=== PATIENT | male | born 1965 | race Caucasian/White ===

== ENCOUNTER 2023-09-06 07:47 | Outpatient (AMB) | payer OTHER, SELFPAY ==
--- NOTE | 2023-09-06 08:03 | A.OFFPC_ITS ---
Vital Signs 09/06/23 08:17 Height 5 ft 10 in Weight 251 lb 8 oz BMI 36.1 BP 120/70 Blood Pressure Location Lt brachial Position Sitting Respiration 16 Pulse 76 Pulse Source Pulse Oximeter Temp 98.3 F Temp Source Oral Pulse Oximetry (%) 95 Oxygen Delivery Method Room Air Intake Visit Reasons: ELLA from [facility] Intake Note: New patient visit [facility] For [employer] Required: No Allergies No Known Allergies Allergy (Verified 09/06/23 08:08) Medication List - Last Reconciled 09/06/23 by Malissa Lugo PA-C apixaban (Eliquis) 5 mg PO BID atorvastatin 80 mg PO DAILY carbidopa-levodopa 25-100 mg ER tabs PO cholecalciferol (vitamin D3) 50 mcg PO DAILY diltiazem HCl ER (DILT-XR) 180 mg PO DAILY diltiazem HCl ER 180 mg PO DAILY ferrous sulfate 325 mg PO DAILY flecainide 100 mg PO Q12H folic acid 1 mg PO DAILY gabapentin mg PO TID lisinopril 20 mg PO DAILY metformin ER 500 mg PO BID methocarbamol 500 mg PO TID thiamine mononitrate (vit B1) 100 mg PO DAILY Tobacco use date assessed: 09/06/23 Dental Screening Dental Screen Date: 09/06/23 Did you have a dental visit in the last 12 months?: Yes Did you have a dental problem in the last 6 months where you did not have access to dental care?: No Was dental information given to patient?: Patient has dentist HPI ELLA from [facility] HPI Details Pt is a 58 y/o male who presents today to reestablish care. He is gordon sferring from [facility]. He has a history of hypertension, hyperlipidemia, AFib, chronic anticoagulation, controlled type 2 diabetes, prior CVA with residual right-sided weakness , recent diagnosis of parkinsonism and gout. He was last seen by myself in April. -reports today that his right ear canal is painful. A few weeks ago he went to an urgent care do have it irrigated because he had a cerumen impaction but he they were unable to do this. He states that they did scrape the ear canal and cause some minimal bleeding. He then had his daughter irrigate the ear. He states over last week or so it has been painful. It feels somewhat blocked. No fevers or chills. No drainage from the ear. He does swim regularly. Endo: His last A1c was 5.5. He is on metformin. No diarrhea. Last LDL was 46. He is on atorvastatin 80 mg. He is on an NICK inhibitor. He does not follow with Ophthalmology as much as he should. CV: Blood pressure today in the office is 120/70. He is currently on diltiazem, flecainide, lisinopril and Eliquis. Follows with cardiology. Last saw Dr. Mancera in March. Musculoskeletal: He is on gabapentin 600 mg 3 times a day and methocarbamol 3 times a day. He has been on this regimen since his stroke in feels well with this. He is on allopurinol for gout prevention. Neuro: He has a right arm, hand and right leg and vocal tremor. He followed katelyn marcial with Dr. Alicia but then he abruptly left the practice and patient was then lost to follow up. At our last visit I have referred him to [facility] as his daughter works there and he was able to get into the [facility]. I did also order an MRI. Which was completed on 05/02/2023. The MRI showed: 1. No acute/subacute infarct, mass, hem atoma or other acute intracranial abnormality. 2. Chronic infarcts in the left thalamu s, left medial temporal occipital junction, and left cerebellum with mild associated hemosiderin staining. 3. Loss of left vertebral artery flow vo id consistent with slow flow in the setting of known proximal occlusion (as seen on CTA head/neck of 09/08/2022). 4. Mild T2/FLAIR hyperintense foci in t he white matter, nonspecific but most likely reflecting chronic small vessel disease -He states he saw them 2 weeks ago in [facility] and he ended up meeting with a board of neurologists. He states that they believe the parkinsonism is related to his stroke. He is starting a new med next week. He does not know the name but will get me the med list. Colonoscopy: He believes up to date Psa:Overdue [facility] Medical History (Updated 09/06/23 @ 08:44 by Malissa Lugo PA-C) CVA (cerebral vascular accident) Right sided weakness Paroxysmal A-fib Hypertension Hyperlipidemia Surgical History (Updated 09/06/23 @ 09:05 by Theresa Alonzo CMA) Hx of appendectomy H/O: vasectomy Family History (Updated 09/06/23 @ 09:08 by Theresa Alonzo CMA) Mother Valvular heart disease Father Congestive heart failure Heart failure Gout Brother Alcoholic Aspergers' syndrome Lung cancer Histiocytosis Wilsons disease Other Substance use Social History Housing: House Tobacco use type: Cigar Years Smoked: Once a week if that e-Cigarette/Vaping Use: Never Used Second Hand Smoke Exposure: No service: No Current occupational status: employed 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 1. Little interest or pleasure in doing things: not at all 2. Feeling down, depressed, or hopeless: not at all 3. Trouble falling or staying asleep, or sleeping too much: not at all 4. Feeling tired or having little energy: not at all 5. Poor appetite or overeating: not at all 6. Feeling bad about yourself - or that you are a failure or have let yourself or your family down: not at all 7. Trouble concentrating on things, such as reading the newspaper or watching television: not at all 8. Moving or speaking so slowly that other people could have noticed. Or the opposite - being so fidgety or restless that you have been moving around a lot more than usual: not at all 9. Thoughts that you would be better off or of hurting yourself in some way: not at all Total score: 0 Depression Screening Interpretation: Negative Depression Screening Done: Yes 48426 - PHQ-9 Billing: Yes Source: Developed by Drs. Jaswinder Daigle, Juana Hood, Calvin Guevara and colleagues, with an educational adriana from [employer]. Thrive Questionnaire I am a: Patient Within the past 12 months, did the food you bought not last and you didn't have the money to get more?: Never true Within the past 12 months, did you worry whether your food would run out before you got money to buy more?: Never true Do you have trouble paying for medicines?: No Do you have trouble getting transportation to medical appointments?: No Do you have trouble paying your heating and electricity bill?: No Do you have trouble taking care of your child, family member or friend?: No Do you have trouble with day-to-day activities such as bathing, preparing meals, shopping, managing finances, etc.?: No Are you currently unemployed and looking for a job?: No Are you interested in more education?: No Please select the resources that you would like help with: None Currently or been in a relationship where the following occur: No concerns reported THRIVE Score: 0 AUDIT C Alcohol Use Questionnaire (AUDIT-C) 1. How often do you have a drink containing alcohol?: 2-4 times a month 2. How many drinks containing alcohol do you have on a typical day when you are drinking?: 3 or 4 3. How often do you have six or more drinks on one occasion?: Less than monthly Total Score: 4 Score Reviewed/Action Taken: Yes ROSE MARIE-7 AMB Questionnaire ROSE MARIE-7 Feeling nervous, anxious, or on edge: 0 = Not at all Not being able to stop or control worryin = Not at all Worrying too much about different things: 0 = Not at all Trouble relaxin = Not at all Being so restless that it is hard to sit still: 0 = Not at all Becoming easily annoyed or irritable: 0 = Not at all Feeling afraid as if something awful might happen: 0 = Not at all Total ROSE MARIE-7 score (0-4 normal; 5-9 mild; 10-14 moderate; 15-21 severe): 0 Source: Developed by Drs. Jaswinder Daigle, Juana Hood, Calvin Guevara and colleagues, with an educational adriana from [employer]. ROSE MARIE-7 Assessment Billing ROSE MARIE-7 Assessment Tool: ROSE MARIE-7 Assessment [id number] Physical exam (Primary Care) Vital Signs: Last Vital Signs Temp 98.3 F 09/06/23 08:17 Pulse 76 09/06/23 08:17 Resp 16 09/06/23 08:17 BP 120/70 09/06/23 08:17 Pulse Ox 95 09/06/23 08:17 Oxygen Delivery Method Room Air 09/06/23 08:17 BMI result Body Mass Index 36.1 Tobacco/Smoking Status: Tobacco use Status Tobacco use date assessed 09/06/23 09/06/23 08:22 Tobacco use type Cigar 09/06/23 08:22 e-Cigarette/Vaping Use Never Used 09/06/23 08:22 Depression Screening Interpretation: Negative Currently or been in a relationship where the following occur: No concerns reported Const Orientation/consciousness: patient oriented x3 HENMT Ears: hearing grossly normal bilaterally, TM's normal bilaterally and other (Canal on right erythematous and swollen. tug test positive) General nose exam: Normal nasal mucous membranes and turbinates present Face and sinus: Yes sinuses nontender Neck Thyroid: Thyroid normal Lymphatic: no lymphadenopathy noted Resp Auscultation: clear to auscultation bilaterally Cardio Rate: regular rate Rhythm: regular rhythm Heart sounds: S1 normal heart sound present and S2 normal heart sound present GI Inspection: Yes normal to inspection Palpation (GI): Soft to palpation and Other GI palpation findings present (nontender, no cva tenderness) Auscultation: normoactive bowel sounds Rectal Exam - Male: Yes deferred Skin General skin exam: no rashes or lesions noted Neuro General: patient oriented x3, gait normal and moves all extremities Motor exam (neuro): Tremors during motor activity present Assessment and Plan Assessment & Plan (1) Hyperlipidemia: Code(s): E78.5 - Hyperlipidemia, unspecified Qualifiers: Hyperlipidemia type: mixed hyperlipidemia Qualified Code(s): E78.2 - Mixed hyperlipidemia Plan: continue atorvastatin. lipids and lfts ordered (2) Hypertension: Code(s): I10 - Essential (primary) hypertension Qualifiers: Hypertension type: primary hypertension Qualified Code(s): I10 - Essential (primary) hypertension Plan: wnl, continue current plan (3) Paroxysmal A-fib: Code(s): I48.0 - Paroxysmal atrial fibrillation Plan: follows with Dr. 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 Plan: continue following with [facility] (5) Controlled type 2 diabetes mellitus: Code(s): E11.9 - Type 2 diabetes mellitus without complications Qualifiers: Diabetes mellitus halfway insulin use: without vermin exterminator use Diabetes mellitus complication status: without complication Qualified Code(s): E11.9 - Type 2 diabetes mellitus without complications Plan: dm labs ordered continue current treatment (6) Right sided weakness: Code(s): R53.1 - Weakness Plan: unchanged (7) Sleep apnea: Code(s): G47.30 - Sleep apnea, unspecified Orders: Orders Lipid Panel Today E11.9 - Type 2 diabetes mellitus without complications, E78.5 - Hyperlipidemia, unspecified, G20.C - Parkinsonism, unspecified, I10 - Essential (primary) hypertension, I48.0 - Paroxysmal atrial fibrillation, I63.9 - Cerebral infarction, unspecified, R53.1 - Weakness Comprehensive Baldwin. Panel Fast Today E11.9 - Type 2 diabetes mellitus without complications, E78.5 - Hyperlipidemia, unspecified, G20.C - Parkinsonism, unspecified, I10 - Essential (primary) hypertension, I48.0 - Paroxysmal atrial fibrillation, I63.9 - Cerebral infarction, unspecified, R53.1 - Weakness Complete Blood Count Auto Diff Today E11.9 - Type 2 diabetes mellitus without complications, E78.5 - Hyperlipidemia, unspecified, G20.C - Parkinsonism, unspecified, I10 - Essential (primary) hypertension, I48.0 - Paroxysmal atrial fibrillation, I63.9 - Cerebral infarction, unspecified, R53.1 - Weakness TSH reflex Free T4 Today E11.9 - Type 2 diabetes mellitus without complications, E78.5 - Hyperlipidemia, unspecified, G20.C - Parkinsonism, unspecified, I10 - Essential (primary) hypertension, I48.0 - Paroxysmal atrial fibrillation, I63.9 - Cerebral infarction, unspecified, R53.1 - Weakness Hemoglobin A1c Today E11.9 - Type 2 diabetes mellitus without complications, E78.5 - Hyperlipidemia, unspecified, G20.C - Parkinsonism, unspecified, I10 - Essential (primary) hypertension, I48.0 - Paroxysmal atrial fibrillation, I63.9 - Cerebral infarction, unspecified, R53.1 - Weakness Lyme IgG/IgM w/reflex to WB Today E11.9 - Type 2 diabetes mellitus without complications, E78.5 - Hyperlipidemia, unspecified, G20.C - Parkinsonism, unsp ecified, I10 - Essential (primary) hypertension, I48.0 - Paroxysmal atrial fibrillation, I63.9 - Cerebral infarction, unspecified, R53.1 - Weakness Vitamin B12 and Folate Today E11.9 - Type 2 diabetes mellitus without complications, G21.4 - Vascular parkinsonism, G47.30 - Sleep apnea, unspecified Microalbumin, Random (w Creat) Today E11.9 - Type 2 diabetes mellitus without complications, E78.5 - Hyperlipidemia, unspecified, G20.C - Parkinsonism, unspecified, I10 - Essential (primary) hypertension, I48.0 - Paroxysmal atrial fibrillation, I63.9 - Cerebral infarction, unspecified, R53.1 - Weakness Prostate Specific Antigen Today E11.9 - Type 2 diabetes mellitus without complications, E78.5 - Hyperlipidemia, unspecified, G20.C - Parkinsonism, unspecified, I10 - Essential (primary) hypertension, I48.0 - Paroxysmal atrial fibrillation, I63.9 - Cerebral infarction, unspecified, R53.1 - Weakness Referrals Sleep Medicine Referral G47.33 - Obstructive sleep apnea (adult) (pediatric) Medications: New [id number] 3.5-10,000-1 mg/mL-unit/mL-% 4 drps otic (ear) right TID 10 days 10 mL 0RF Coding Level of Care Code Est Pt Level 4 (85363) Complex EM visit Add On G2211 Diagnoses Mixed hyperlipidemia E78.2 Hyperlipidemia type: mixed hyperlipidemia Primary hypertension I10 Hypertension type: primary hypertension Paroxysmal A-fib I48.0 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 Secondary Parkinsonism type: vascular Controlled type 2 diabetes mellitus without complication, without long-term current use of insulin E11.9 Diabetes mellitus vermin exterminator insulin use: without vermin exterminator use Diabetes mellitus complication status: without complication Right sided weakness R53.1 Sleep apnea G47.30 Additional Codes ROSE MARIE-7 Assessment Billing - ROSE MARIE-7 Assessment Tool: ROSE MARIE-7 Assessment [id number] ([id number])
[2023-09-06 08:17] VITALS: BP 120/70; PULSE 76; RESP 16; TEMP 36.8; O2SAT 95; BMI 36.1
== END 2023-09-06 08:58 | disposition home or self-care (01) ==
PROVIDERS: PCP Physician Assistant; Visit Provider Physician Assistant
DX: E78.2 Mixed hyperlipidemia (principal); I10 Essential (primary) hypertension; I48.0 Paroxysmal atrial fibrillation; G21.4 Vascular parkinsonism; E11.9 Type 2 diabetes mellitus without complications; R53.1 Weakness; G47.30 Sleep apnea, unspecified
CPT/HCPCS: 99214

== ENCOUNTER 2023-12-12 06:18 | Outpatient (REF) | payer OTHER, SELFPAY ==
[2023-12-12 06:43] LABS: MANUAL DIFF FLAG NO
[2023-12-12 07:44] LABS: Basophils Absolute Auto 0.1 X10*3/uL (0.0-0.2); Basophils Percent Auto 1.4 % (0-2); Eosinophils Absolute Auto 0.2 X10*3/uL (0.0-0.4); Eosinophils Percent Auto 4.3 % (0-4); Hematocrit 43.1 % (42.0-52.0); Hemoglobin 15.2 g/dl (14.0-18.0); Imm Gran Abs Auto 0.01 X10*3/uL (0.00-0.03); Imm Gran Pct Auto 0.2 % (0.0-0.4); Lymphocytes Absolute Auto 1.9 X10*3/uL (1.2-4.9); Lymphocytes Percent Auto 36.2 % (20-40); Mean Corpuscular HGB Conc 35.3 g/dl (31.0-36.0); Mean Corpuscular Hemoglobin 30.8 pg (27.0-33.0); Mean Corpuscular Volume 87.4 fL (80.0-98.0); Mean Platelet Volume 9.5 fL (9.4-12.4); Monocytes Absolute Auto 0.4 X10*3/uL (0.1-1.2); Monocytes Percent Auto 8.3 % (2-11); Neutrophils Absolute Auto 2.6 x10*3/uL (2.0-8.3); Neutrophils Percent Auto 49.6 % (45-73); Platelet Count 220 X10*3/uL (160-400); Red Blood Count 4.93 X10*6/uL (4.60-5.80); Red Cell Distribution Width 12.1 % (11.0-16.0); White Blood Count 5.2 X10*3/uL (4.8-10.8)
[2023-12-12 07:56] LABS: Estimated Average Glucose 123 mg/dL; Hemoglobin A1C 162.7329 umol/L; Hemoglobin A1c % 5.9 % (<6.0); Total Hemoglobin (HGBA1C) 3920.1954 umol/L
[2023-12-12 08:20] LABS: Alanine Aminotransferase 24 U/L (0-40); Albumin Level 4.4 g/dL (3.5-5.0); Alkaline Phosphatase 96 U/L (39-117); Anion Gap 13 (12-20); Aspartate Amino Transferase 30 U/L (5-37); Bilirubin Total 0.7 mg/dL (0.0-1.0); Blood Urea Nitrogen 12 mg/dL (9-16); Calcium 9.5 mg/dL (8.4-10.2); Carbon Dioxide 27 mmol/L (22-29); Chloride 103 mmol/L (96-108); Cholesterol 119 mg/dL (<200); Estimated Glomerular Filt Rate > 60; Glucose Fasting 137 mg/dL (60-99); HDL Cholesterol 49 mg/dL (>40); LDL Cholesterol Calculated 45 mg/dL (<100); Potassium 4.1 mmol/L (3.3-5.1); Sodium 139 mmol/L (135-145); Total Protein 7.1 g/dL (6.5-8.0); Triglycerides 126 mg/dL (<150)
[2023-12-12 08:25] LABS: Creatinine Urine 288.83 mg/dL; Microalbum/Creatinine Ratio Ur 121.1 ug/mg cr (<30)
[2023-12-12 08:38] LABS: TSH reflex Free T4 1.04 uIU/mL (0.32-4.0)
[2023-12-12 08:49] LABS: Folate 15.5 ng/mL (> or = 4.0); Prostate Specific Antigen 0.96 ng/mL (<0.05-4.0); Vitamin B12 374 pg/mL (200-900)
[2023-12-14 06:48] LABS: Lyme Abs Screen <0.90 index
== END 2023-12-12 06:19 | disposition home or self-care (01) ==
LOC: HO.LAB 06:18
PROVIDERS: PCP Physician Assistant; Visit Provider Physician Assistant
DX: E78.5 Hyperlipidemia, unspecified (principal); I10 Essential (primary) hypertension; I48.0 Paroxysmal atrial fibrillation; G20.C Parkinsonism, unspecified; E11.9 Type 2 diabetes mellitus without complications; R53.1 Weakness; I63.9 Cerebral infarction, unspecified; G47.30 Sleep apnea, unspecified; G21.4 Vascular parkinsonism; Z12.5 Encounter for screening for malignant neoplasm of prostate
CPT/HCPCS: 36415; 80053; 80061; 82043; 82570; 82607; 82746; 83036; 84153; 84443; 85025; 86617; 86618

== ENCOUNTER 2023-12-13 08:27 | Outpatient (AMB) | payer OTHER, SELFPAY ==
--- NOTE | 2023-12-13 08:32 | A.OFFPC_ITS ---
Vital Signs 12/13/23 08:33 Height 5 ft 10 in Weight 253 lb BMI 36.3 BP 126/82 Blood Pressure Location Rt brachial Position Sitting Pulse 78 Pulse Source Pulse Oximeter Pulse Oximetry (%) 97 Oxygen Delivery Method Room Air Intake Visit Reasons: F/U Intake Note: Follow up Allergies No Known Allergies Allergy (Verified 12/13/23 08:32) Medication List - Last Reconciled 12/13/23 by Malissa Lugo PA-C apixaban (Eliquis) 5 mg PO BID atorvastatin 80 mg PO DAILY carbidopa-levodopa 25-100 mg ER tabs PO cholecalciferol (vitamin D3) 50 mcg PO DAILY diltiazem HCl ER (DILT-XR) 180 mg PO DAILY diltiazem HCl ER 180 mg PO DAILY ferrous sulfate 325 mg PO DAILY flecainide 100 mg PO Q12H folic acid 1 mg PO DAILY gabapentin 600 mg (2 x 300 mg) PO TID 30 days lisinopril 20 mg PO DAILY metformin ER 500 mg PO BID methocarbamol 500 mg PO TID 90 days thiamine mononitrate (vit B1) 100 mg PO DAILY Tobacco use date assessed: 09/06/23 Dental Screening Dental Screen Date: 09/06/23 HPI F/U HPI Details Pt is a 58 y/o male who presents today to reestablish care. He is transferring from [facility]. He has a history of hypertension, hyperlipidemia, AFib, chronic anticoagulation, controlled type 2 diabetes, prior CVA with residual right-sided weakness , recent diagnosis of parkinsonism and gout. He was last seen by myself in April. Endo: dx around 2013. He has been on metformin since that time. His last A1c was 5.9. He is on metformin BID. No diarrhea. Microalbuminuria noted. Last LDL was 46. He is on atorvastatin 80 mg. He is on an NICK inhibitor. CV: Blood pressure today in the office is 126/82. They are discussing the Watchman procedure. He is currently on diltiazem, flecainide, lisinopril and Eliquis. Follows with cardiology. Last saw Dr. Mancera in March. Musculoskeletal: He is on gabapentin 600 mg 3 times a day and methocarbamol 3 times a day. He has been on this regimen since his stroke in feels well with this. He is on allopurinol for gout prevention. Neuro: He has a right arm, hand and right leg and vocal tremor. He followed wants with Dr. Alicia but then he abruptly left the practice and patient was then lost to follow up. At our last visit I have referred him to [facility] as his daughter works there and [facility] was able to get [facility]. I did also order an MRI. Which was completed on 05/02/2023. The MRI showed: 1. No acute/subacute infarct, mass, hem atoma or other acute intracranial abnormality. 2. Chronic infarcts in the left thalamu s, left medial temporal occipital junction, and left cerebellum with mild associated hemosiderin staining. 3. Loss of left vertebral artery flow vo id consistent with slow flow in the setting of known proximal occlusion (as seen on CTA head/neck of 09/08/2022). 4. Mild T2/FLAIR hyperintense foci in t he white matter, nonspecific but most likely reflecting chronic small vessel disease -He states he saw them 2 weeks ago in [facility] and he ended up meeting with a board of neurologists. He states that they believe the parkinsonism is related to his stroke. Colonoscopy: He believes up to date Psa: WNL [facility] Medical History (Updated 12/13/23 @ 11:26 by Malissa Lugo PA-C) CVA (cerebral vascular accident) Right sided weakness Paroxysmal A-fib Hypertension Hyperlipidemia Surgical History (Updated 09/06/23 @ 09:05 by Theresa Alonzo CMA) Hx of appendectomy H/O: vasectomy Family History (Updated 09/06/23 @ 09:08 by Theresa Alonzo CMA) Mother Valvular heart disease Father Congestive heart failure Heart failure Gout Brother Alcoholic Aspergers' syndrome Lung cancer Histiocytosis Wilsons disease Other Substance use Social History Housing: House Tobacco use type: Cigar Years Smoked: Once a week if that e-Cigarette/Vaping Use: Never Used Second Hand Smoke Exposure: No service: No Current occupational status: employed 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 1. Little interest or pleasure in doing things: not at all 2. Feeling down, depressed, or hopeless: not at all 3. Trouble falling or staying asleep, or sleeping too much: not at all 4. Feeling tired or having little energy: not at all 5. Poor appetite or overeating: not at all 6. Feeling bad about yourself - or that you are a failure or have let yourself or your family down: not at all 7. Trouble concentrating on things, such as reading the newspaper or watching television: not at all 8. Moving or speaking so slowly that other people could have noticed. Or the opposite - being so fidgety or restless that you have been moving around a lot more than usual: not at all 9. Thoughts that you would be better off or of hurting yourself in some way: not at all Total score: 0 Source: Developed by Drs. Jaswinder Daigle, Juana Hood, Calvin Guevara and colleagues, with an educational adriana from [employer]. Thrive Questionnaire I am a: Patient What is your living situation today?: I have a steady place to live Within the past 12 months, did the food you bought not last and you didn't have the money to get more?: Never true Within the past 12 months, did you worry whether your food would run out before you got money to buy more?: Never true Do you have trouble paying for medicines?: No Do you have trouble getting transportation to medical appointments?: No Do you have trouble paying your heating and electricity bill?: No Do you have trouble taking care of your child, family member or friend?: No Do you have trouble with day-to-day activities such as bathing, preparing meals, shopping, managing finances, etc.?: No Are you currently unemployed and looking for a job?: No Are you interested in more education?: No Please select the resources that you would like help with: None Currently or been in a relationship where the following occur: No concerns reported THRIVE Score: 0 AUDIT C Alcohol Use Questionnaire (AUDIT-C) 1. How often do you have a drink containing alcohol?: 2-4 times a month 2. How many drinks containing alcohol do you have on a typical day when you are drinking?: 1 or 2 3. How often do you have six or more drinks on one occasion?: Never Total Score: 2 ROSE MARIE-7 AMB Questionnaire ROSE MARIE-7 Feeling nervous, anxious, or on edge: 0 = Not at all Not being able to stop or control worryin = Not at all Worrying too much about different things: 0 = Not at all Trouble relaxin = Not at all Being so restless that it is hard to sit still: 0 = Not at all Becoming easily annoyed or irritable: 0 = Not at all Feeling afraid as if something awful might happen: 0 = Not at all Total ROSE MARIE-7 score (0-4 normal; 5-9 mild; 10-14 moderate; 15-21 severe): 0 Source: Developed by Drs. Jaswinder Daigle, Juana Hood, Calvin Guevara and colleagues, with an educational adriana from [employer]. Physical exam (Primary Care) Vital Signs: Last Vital Signs Pulse 78 12/13/23 08:33 BP 126/82 12/13/23 08:33 Pulse Ox 97 12/13/23 08:33 Oxygen Delivery Method Room Air 12/13/23 08:33 BMI result Body Mass Index 36.3 Tobacco/Smoking Status: Tobacco use Status Tobacco use date assessed 09/06/23 12/13/23 08:36 Tobacco use type Cigar 12/13/23 08:36 e-Cigarette/Vaping Use Never Used 12/13/23 08:36 PHQ-9: PHQ-9 Score PHQ-9: Total score 0 12/13/23 10:37 Currently or been in a relationship where the following occur: No concerns reported Const Orientation/consciousness: patient oriented x3 HENMT Ears: hearing grossly normal bilaterally Neck Thyroid: Thyroid normal Lymphatic: no lymphadenopathy noted Resp Auscultation: clear to auscultation bilaterally Cardio Rate: regular rate Rhythm: regular rhythm Heart sounds: S1 normal heart sound present and S2 normal heart sound present GI Inspection: Yes normal to inspection Palpation (GI): Soft to palpation and Other GI palpation findings present (nontender, no cva tenderness) Auscultation: normoactive bowel sounds Rectal Exam - Male: Yes deferred Skin General skin exam: no rashes or lesions noted Neuro General: patient oriented x3, gait normal and no focal motor deficits Results Reviewed Results Reviewed: Laboratory Tests 12/12/23 06:41 WBC 5.2 RBC 4.93 Hgb 15.2 Hct 43.1 Plt Count 220 Sodium 139 Potassium 4.1 Chloride 103 Carbon Dioxide 27 Anion Gap 13 BUN 12 Creatinine 0.97 Estimated GFR > 60 Fasting Glucose 137 H Estimat Average Glucose 123 Hemoglobin A1c % 5.9 Calcium 9.5 Total Bilirubin 0.7 AST 30 ALT 24 Alkaline Phosphatase 96 Total Protein 7.1 Albumin 4.4 Triglycerides 126 Cholesterol 119 LDL Cholesterol, Calc 45 HDL Cholesterol 49 Prostate Specific Ag 0.96 Vitamin B12 374 Folate 15.5 TSH 1.04 Urine Creatinine 288.83 Urine Microalbumin 350.0 Microalb/Creat Ratio 121.1 H Coding Level of Care Code Est Pt Level 4 (53860) Complex EM visit Add On G2211 Diagnoses Controlled type 2 diabetes mellitus with microalbuminuria, without long-term current use of insulin E11.29; R80.9 Diabetes mellitus complication detail: with diabetic microalbuminuria Microalbuminuria due to type 2 diabetes mellitus E11.29; R80.9 Primary hypertension I10 Hypertension type: primary hypertension Mixed hyperlipidemia E78.2 Hyperlipidemia type: mixed hyperlipidemia Assessment & Plan Assessment & Plan (1) Controlled type 2 diabetes mellitus with kidney complication, without long- term current use of insulin: Code(s): E11.29 - Type 2 diabetes mellitus with other diabetic kidney complication Category: Medical Qualifiers: Diabetes mellitus complication detail: with diabetic microalbuminuria Qualified Code(s): E11.29 - Type 2 diabetes mellitus with other diabetic kidney complication; R80.9 - Proteinuria, unspecified Plan: On an NICK inhibitor. Doing well with metformin but we will reduce the dose and start him on Jardiance. We discussed risks and benefits and adverse effects of this medication including frequent UTIs, yeast infections etc.. Recheck labs one-month (2) Microalbuminuria due to type 2 diabetes mellitus: Code(s): E11.29 - Type 2 diabetes mellitus with other diabetic kidney complication; R80.9 - Proteinuria, unspecified Category: Medical Plan: As above (3) Hypertension: Code(s): I10 - Essential (primary) hypertension Category: Medical Qualifiers: Hypertension type: primary hypertension Qualified Code(s): I10 - Essential (primary) hypertension Plan: Continue current regimen (4) Hyperlipidemia: Code(s): E78.5 - Hyperlipidemia, unspecified Category: Medical Qualifiers: Hyperlipidemia type: mixed hyperlipidemia Qualified Code(s): E78.2 - Mixed hyperlipidemia Plan: Continue current regimen. Reviewed labs. Orders: Orders Comprehensive [place]. Panel Fast Today E11.29 - Type 2 diabetes mellitus with other diabetic kidney complication, E11.9 - Type 2 diabetes mellitus without complications, R80.9 - Proteinuria, unspecified Microalbumin, Random (w Creat) Today E11.29 - Type 2 diabetes mellitus with other diabetic kidney complication, E11.9 - Type 2 diabetes mellitus without complications, R80.9 - Proteinuria, unspecified Hemoglobin A1c Today E11.29 - Type 2 diabetes mellitus with other diabetic kidney complication, E11.9 - Type 2 diabetes mellitus without complications, R80.9 - Proteinuria, unspecified TSH reflex Free T4 3 Months E11.29 - Type 2 diabetes mellitus with other diabetic kidney complication, E11.9 - Type 2 diabetes mellitus without complications, R80.9 - Proteinuria, unspecified Referrals Dermatology Referral L98.9 - Disorder of the skin and subcutaneous tissue, unspecified Medications: New empagliflozin (Jardiance) 10 mg PO QAM 90 tabs 0RF Changed From metformin ER 500 mg PO BID 180 tabs 3RF To metformin ER 500 mg PO DAILY 90 days 90 tabs 3RF
[2023-12-13 08:33] VITALS: BP 126/82; PULSE 78; O2SAT 97; BMI 36.3
== END 2023-12-13 14:36 | disposition home or self-care (01) ==
LOC: HO.HMCFM 08:28
PROVIDERS: PCP Physician Assistant; Visit Provider Physician Assistant
DX: E11.29 Type 2 diabetes mellitus with other diabetic kidney complication (principal); R80.9 Proteinuria, unspecified; I10 Essential (primary) hypertension; E78.2 Mixed hyperlipidemia

== ENCOUNTER → 2023-12-13 08:27 | Outpatient (BNVA) | payer OTHER, SELFPAY | PROVIDERS: PCP Physician Assistant; Visit Provider Physician Assistant ==

== ENCOUNTER 2024-04-18 11:08 | Outpatient (AMB) | payer OTHER, SELFPAY ==
--- NOTE | 2024-04-18 11:33 | A.OFFPC_ITS ---
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 Allergies No Known Allergies Allergy (Verified 04/18/24 11:34) Medication List - Last Reconciled 04/18/24 by Malissa Lugo PA-C allopurinol 200 mg (2 x 100 mg) PO BEDTIME 90 days apixaban (Eliquis) 5 mg PO BID atorvastatin 80 mg PO DAILY carbidopa-levodopa 25-100 mg ER tabs PO cholecalciferol (vitamin D3) 50 mcg PO DAILY diltiazem HCl ER (DILT-XR) 180 mg PO DAILY empagliflozin (Jardiance) 10 mg PO QAM ferrous sulfate 325 mg PO DAILY flecainide 100 mg PO Q12H folic acid 1 mg PO DAILY gabapentin 600 mg (2 x 300 mg) PO TID 90 days lisinopril 20 mg PO DAILY metformin ER 500 mg PO DAILY 90 days methocarbamol 500 mg PO TID 90 days multivitamin 1 tab PO DAILY thiamine mononitrate (vit B1) 100 mg PO DAILY Tobacco use date assessed: 04/18/24 Dental Screening Dental Screen Date: 09/06/23 HPI dm bp HPI Details Pt is a 58 y/o male who [facility] is transferring from [facility]. He has a history of hypertension, hyperlipidemia, AFib, chronic anticoagulation, controlled type 2 diabetes, prior CVA with residual right-sided weakness , recent diagnosis of parkinsonism and gout. He was last seen by myself in April. Endo: dx around 2013. He has been on metformin since that time. His is A1c is 6.3. He is on metformin Once a day. Does sometimes get GI upset. He is doing well with the Jardiance but does urinate frequently. No UTIs or yeast infections. Microalbuminuria noted. Last LDL was 46. He is on atorvastatin 80 mg. He is on an NICK inhibitor. CV: Blood pressure today in the office is 98/68. They are discussing the Watchman procedure. He is currently on diltiazem, flecainide, lisinopril and Eliquis. Follows with cardiology. Last saw Dr. Mancera in March. Musculoskeletal: He is on gabapentin 600 mg 3 times a day and methocarbamol 3 times a day. He has been on this regimen since his stroke in feels well with this. He is on allopurinol for gout prevention. Neuro: He has a right arm, hand and right leg and vocal tremor. He followed by neurology in [place] and he ended up meeting with a board of neurologists. He states that they believe the parkinsonism is related to his stroke. Colonoscopy: He believes up to date Psa: WNL [facility] Medical History (Updated 12/13/23 @ 11:26 by Malissa Lugo PA-C) CVA (cerebral vascular accident) Right sided weakness Paroxysmal A-fib Hypertension Hyperlipidemia Surgical History (Updated 09/06/23 @ 09:05 by Theresa Alonzo CMA) Hx of appendectomy H/O: vasectomy Family History (Updated 09/06/23 @ 09:08 by Theresa Alonzo CMA) Mother Valvular heart disease Father Congestive heart failure Heart failure Gout Brother Alcoholic Aspergers' syndrome Lung cancer Histiocytosis Wilsons disease Other Substance use Social History Housing: House Alcohol intake: current Comment: sometimes Patient Tobacco Use Status: Current someday Tobacco user Tobacco use type: Cigar (2 a week at the most) Years Smoked: Once a week if that e-Cigarette/Vaping Use: Never Used Second Hand Smoke Exposure: No service: No Current occupational status: employed 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 1. Little interest or pleasure in doing things: not at all 2. Feeling down, depressed, or hopeless: not at all 3. Trouble falling or staying asleep, or sleeping too much: not at all 4. Feeling tired or having little energy: not at all 5. Poor appetite or overeating: not at all 6. Feeling bad about yourself - or that you are a failure or have let yourself or your family down: not at all 7. Trouble concentrating on things, such as reading the newspaper or watching television: not at all 8. Moving or speaking so slowly that other people could have noticed. Or the opposite - being so fidgety or restless that you have been moving around a lot more than usual: not at all 9. Thoughts that you would be better off or of hurting yourself in some way: not at all Total score: 0 Depression Screening Interpretation: Negative Depression Screening Done: Yes 11636 - PHQ-9 Billing: Yes Source: Developed by Drs. Jaswinder Daigle, Juana Hood, Calvin Guevara and colleagues, with an educational adriana from [employer]. Thrive Questionnaire Date Thrive assessed: 02/21/24 I am a: Patient What is your living situation today?: I have a steady place to live Within the past 12 months, did the food you bought not last and you didn't have the money to get more?: Never true Within the past 12 months, did you worry whether your food would run out before you got money to buy more?: Never true Do you have trouble paying for medicines?: No Do you have trouble getting transportation to medical appointments?: No Do you have trouble paying your heating and electricity bill?: No Do you have trouble taking care of your child, family member or friend?: No Do you have trouble with day-to-day activities such as bathing, preparing meals, shopping, managing finances, etc.?: No Are you currently unemployed and looking for a job?: No Are you interested in more education?: No Please select the resources that you would like help with: None Currently or been in a relationship where the following occur: No concerns reported THRIVE Score: 0 ROSE MARIE-7 AMB Questionnaire ROSE MARIE-7 Feeling nervous, anxious, or on edge: 0 = Not at all Not being able to stop or control worryin = Not at all Worrying too much about different things: 0 = Not at all Trouble relaxin = Not at all Being so restless that it is hard to sit still: 0 = Not at all Becoming easily annoyed or irritable: 0 = Not at all Feeling afraid as if something awful might happen: 0 = Not at all Total ROSE MARIE-7 score (0-4 normal; 5-9 mild; 10-14 moderate; 15-21 severe): 0 Source: Developed by Drs. Jaswinder Daigle, Juana Hood, Calvin Guevara and colleagues, with an educational adriana from [employer]. ROSE MARIE-7 Assessment Billing ROSE MARIE-7 Assessment Tool: ROSE MARIE-7 Assessment 32753 Physical exam (Primary Care) Tobacco/Smoking Status: Tobacco use Status Tobacco use date assessed 09/06/23 12/13/23 08:36 Tobacco use type Cigar 12/13/23 08:36 e-Cigarette/Vaping Use Never Used 12/13/23 08:36 Depression Screening Interpretation: Negative Thrive Assessment: Date of Thrive Assessment Date Thrive assessed 02/21/24 04/16/24 14:25 Currently or been in a relationship where the following occur: No concerns reported Const Orientation/consciousness: patient oriented x3 HENMT Ears: hearing grossly normal bilaterally Neck Thyroid: Thyroid normal Lymphatic: no lymphadenopathy noted Resp Auscultation: clear to auscultation bilaterally Cardio Rate: regular rate Rhythm: regular rhythm Heart sounds: S1 normal heart sound present and S2 normal heart sound present GI Inspection: Yes normal to inspection Palpation (GI): Soft to palpation and Other GI palpation findings present (nontender, no cva tenderness) Auscultation: normoactive bowel sounds Rectal Exam - Male: Yes deferred Skin General skin exam: no rashes or lesions noted Neuro General: patient oriented x3, gait normal and no focal motor deficits Results AMB Hemoglobin A1c AMB Hemoglobin A1c 6.3 % Last Edit by Theresa Alonzo CMA on 04/18/24 13:11 Results Reviewed Results Reviewed: Laboratory Tests 12/12/23 06:41 WBC 5.2 RBC 4.93 Hgb 15.2 Hct 43.1 Plt Count 220 Sodium 139 Potassium 4.1 Chloride 103 Carbon Dioxide 27 Anion Gap 13 BUN 12 Creatinine 0.97 Estimated GFR > 60 Fasting Glucose 137 H Hemoglobin A1c % 5.9 AST 30 ALT 24 Alkaline Phosphatase 96 Triglycerides 126 Cholesterol 119 LDL Cholesterol, Calc 45 HDL Cholesterol 49 Prostate Specific Ag 0.96 Vitamin B12 374 Folate 15.5 TSH 1.04 Urine Creatinine 288.83 Urine Microalbumin 350.0 Microalb/Creat Ratio 121.1 H Coding Level of Care Code Est Pt Level 4 (92067) Complex EM visit Add On G2211 Diagnoses Controlled type 2 diabetes mellitus with microalbuminuria, without long-term current use of insulin E11.29; R80.9 Diabetes mellitus complication detail: with diabetic microalbuminuria Microalbuminuria due to type 2 diabetes mellitus E11.29; R80.9 Sleep apnea G47.30 Paroxysmal A-fib I48.0 Primary hypertension I10 Hypertension type: primary hypertension Mixed hyperlipidemia E78.2 Hyperlipidemia type: mixed hyperlipidemia 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 Secondary Parkinsonism type: vascular Additional Codes PHQ-9 - 33091 - PHQ-9 Billing: Yes ([id number]) ROSE MARIE-7 Assessment Billing - ROSE MARIE-7 Assessment Tool: ROSE MARIE-7 Assessment [id number] ([id number]) Assessment & Plan Assessment & Plan (1) Controlled type 2 diabetes mellitus with kidney complication, without long- term current use of insulin: Code(s): E11.29 - Type 2 diabetes mellitus with other diabetic kidney complication Category: Medical Qualifiers: Diabetes mellitus complication detail: with diabetic microalbuminuria Qualified Code(s): E11.29 - Type 2 diabetes mellitus with other diabetic kidney complication; R80.9 - Proteinuria, unspecified Plan: I would like to discuss continue the metformin as he does sometimes get GI upset. I would like to start Mounjaro given the obstructive sleep apnea and diabetes. We did discuss risks and benefits and adverse effects of this medication. Continue Jardiance. (2) Microalbuminuria due to type 2 diabetes mellitus: Code(s): E11.29 - Type 2 diabetes mellitus with other diabetic kidney complication; R80.9 - Proteinuria, unspecified Category: Medical Plan: On Jardiance and an NICK inhibitor. UA ordered. (3) Sleep apnea: Code(s): G47.30 - Sleep apnea, unspecified Category: Medical Plan: Start Mounjaro (4) Paroxysmal A-fib: Code(s): I48.0 - Paroxysmal atrial fibrillation Category: Medical Plan: stable. Rate controlled and anticoagulated. (5) Hypertension: Code(s): I10 - Essential (primary) hypertension Category: Medical Qualifiers: Hypertension type: primary hypertension Qualified Code(s): I10 - Essential (primary) hypertension Plan: We will reduce lisinopril to 10 mg. Patient has lost weight with some dietary changes. Continue regimen otherwise (6) Hyperlipidemia: Code(s): E78.5 - Hyperlipidemia, unspecified Category: Medical Qualifiers: Hyperlipidemia type: mixed hyperlipidemia Qualified Code(s): E78.2 - Mixed hyperlipidemia Plan: continue atorvastatin (7) Parkinsonism: Code(s): G20.C - Parkinsonism, unspecified Category: Medical Qualifiers: Parkinsonism type: secondary Parkinsonism Secondary Parkinsonism type: vascular Qualified Code(s): G21.4 - Vascular parkinsonism Plan: stable. Orders: Orders AMB Hemoglobin A1c Today E11.29 - Type 2 diabetes mellitus with other diabetic kidney complication, R80.9 - Proteinuria, unspecified Medications: New tirzepatide (Mounjaro) for 4 weeks 2.5 mg (0.5 mL) subcut QWEEK 2 mL 1RF ofloxacin 0.3% 3 drps otic (ears) DAILY 7 days 5 mL 0RF lisinopril 10 mg PO DAILY 90 tabs 0RF Patient Instructions: decrease lisinopril to 10 mg start mounjaro (if covered or itll be trulicity) once approved/at pharmacy and then stop metformin. continue jardiance
[2024-04-18 11:35] VITALS: BP 98/68; PULSE 77; RESP 12; O2SAT 98; BMI 35.3
--- OUTSIDE RECORDS SUMMARY | 2024-04-18 14:19 | XMS_ITS | Clinical Summary ---
Author Organization [facility] Address [address] [place] [address] Care Team Providers Care Test Desk Supervisor Name Role Phone Pcp, No Primary Care Provider Unavailabl e Allergies No known active allergies Medications Medication Sig Dispensed Refills Start Date End Date Status metFORMIN (GLUCOPHAGE-XR) 500 MG 24 hr tabletIndications:Ac elem ischemic stroke (HCC) Take 1 tablet (500 mg total) by mouth 2 (two) times a day. 60 tablet 12/17/2020 Active aspirin 81 MG chewable tabletIndications:Ac elem ischemic stroke (HCC) Chew 1 tablet (81 mg total) daily. Do not start before December 18, 2020. 12/18/2020 Active atorvastatin (LIPITOR) 80 MG tabletIndications:Ac elem ischemic stroke (HCC) Take 1 tablet (80 mg total) by mouth daily. Do not start before December 18, 2020. 30 tablet 12/18/2020 Active Additional Information Patient taking differently:80 mg Oral Daily,AM, Reported on 04/26/2023 clopidogrel (PLAVIX) 75 MG tabletIndications:Ac elem ischemic stroke (HCC) Take 1 tablet (75 mg total) by mouth daily. Do not start before December 18, 2020. 12/18/2020 Active ferrous sulfate 325 (65 FE) MG EC tabletIndications:Ac elem ischemic stroke (HCC) Take 1 tablet (325 mg total) by mouth daily. Take 2 hours before or 4 hours after acid reducers. Do not start before December 18, 2020. 30 tablet 12/18/2020 Active cholecalciferol (CHOLECALCIFEROL) 25 MCG (1000 UT) tabletIndications:Ac elem ischemic stroke (HCC) Take 1 tablet (1,000 Units total) by mouth daily. Do not start before December 18, 2020. 30 tablet 12/18/2020 Active folic acid (FOLVITE) 1 MG tabletIndications:Ac elem ischemic stroke (HCC) Take 1 tablet (1 mg total) by mouth daily. Do not start before December 18, 2020. 30 tablet 12/18/2020 Active Heparin Sodium, Porcine, (heparin, porcine,) 5000 unit/mL injectionIndications :Acute ischemic stroke (HCC) Inject 1 mL (5,000 Units total) under the skin every 8 (eight) hours around the clock. 1 mL 12/17/2020 Active magnesium oxide 400 (241.3 Mg) MG Tab tabletIndications:Ac elem ischemic stroke (HCC) Take 1 tablet (400 mg total) by mouth daily. Do not start before December 18, 2020. 30 tablet 12/18/2020 Active methocarbamol (ROBAXIN) 500 MG tabletIndications:Ac elem ischemic stroke (HCC) Take 1 tablet (500 mg total) by mouth 3 (three) times a day as needed for muscle spasms. 12/17/2020 Active ondansetron (ZOFRAN-ODT) 4 MG disintegrating tabletIndications:Ac elem ischemic stroke (HCC) Take 1 tablet (4 mg total) by mouth 4 times daily (every 6 hours) as needed for nausea or vomiting. Place tablet on tongue to dissolve. 20 tablet 12/17/2020 Active thiamine mononitrate (VITAMIN B-1) 100 MG tabletIndications:Ac elem ischemic stroke (HCC) Take 1 tablet (100 mg total) by mouth daily. Do not start before December 18, 2020. 30 tablet 12/18/2020 Active traMADol (ULTRAM) 50 MG tablet Take 1 tablet (50 mg total) by mouth 4 times daily (every 6 hours) as needed. Active diltiazem (CARDIZEM CD) 180 MG 24 hr capsule Take 1 capsule (180 mg total) by mouth daily. Active allopurinol (ZYLOPRIM) 100 mg tablet Take 2 tablets (200 mg total) by mouth daily. PM Active colchicine (COLCRYS) 0.6 mg tablet Take 1 tablet (0.6 mg total) by mouth 2 (two) times a day as needed. Active diclofenac (VOLTAREN) 1 % gel Apply 2 g topically 4 (four) times a day. Active gabapentin (NEURONTIN) 300 MG capsule Take 2 capsules (600 mg total) by mouth 3 (three) times a day. Active lisinopril (PRINIVIL,ZeSTRIL) 10 MG tablet Take 1 tablet (10 mg total) by mouth daily. Active multivitamin Tab tablet Take 1 tablet by mouth daily. Active doxylamine-pyridoxin e 10-10 MG Tablet Delayed Response Take 50 mg by mouth daily. Active flecainide (TAMBOCOR) 50 MG tablet Take 1 tablet (50 mg total) by mouth 2 (two) times a day. Active magnesium hydroxide (MILK OF MAGNESIA) 400 mg/5 mL suspension Take 30 mL by mouth daily as needed for constipation. Active apixaban (ELIQUIS) 5 MG tablet Take 1 tablet (5 mg total) by mouth 2 (two) times a day. Active Jardiance 10 MG tablet Take 1 tablet (10 mg total) by mouth every morning. 12/15/2023 Active carbidopa-levodopa ER (SINEMET CR) 25-100 MG per tabletIndications:Ru bral tremor Take 2 tablets by mouth 3 times a day. 540 tablet 3 01/24/2024 Active Active Problems Problem Noted Date Diagnosed Date Atrial fibrillation 04/26/2023 04/26/2023 Acute ischemic stroke 12/11/2020 Overview (12/11/2020): Added automatically from request for surgery [id number] Encounters Date Type Department Care Team Description 01/24/2024 2:00 PM EST Office Visit [facility] [id number] [place] [address] Rah Dawson MD Rubral tremor (Primary Dx) 01/24/2024 Travel from Last 3 Months Family History Medical History Relation Name Comments Cancer Brother Diabetes Father Diabetes Mother Relation Name Status Comments Brother Father Mother Social History Tobacco Use Types Packs/Day Years Used Date Smoking Tobacco: Some Days Cigars Smokeless Tobacco: Never Tobacco Cessation:Counseling Given: Not Answered Alcohol Use Standard Drinks/Week Comments Yes 0 (1 standard drink = 0.6 oz pur e alcohol) occasionally OASIS D0700: Social Isolation Answer Da te Recorded Frequency of experiencing loneliness or isolatio n Never 06/01/2022 OASIS A1250: Transportation Answer Date Recorded Lack of Transportation (Medical) No 06/01/2022 Lack of Transportation (Non-Medical) No 06/01/2022 Patient Unable or Declines to Respond No 06/01/2022 Sex and Gender Information Value Date Recorded Sex Assigned at Not on file Gender Identity Not on file Sexual Orientation Not on file Last Filed Vital Signs Vital Sign Reading Time Taken Comments Blood Pressure 126/74 01/24/2024 1:43 PM EST Pulse 83 01/24/2024 1:43 PM EST Temperature 36.6 ??C (97.9 ??F) 06/01/2022 9:52 AM ED T Respiratory Rate 16 05/25/2022 1:53 PM EDT Oxygen Saturation 95% 01/24/2024 1:43 PM EST Inhaled Oxygen Concentration - - Weight 114 kg (251 lb) 01/24/2024 1:43 PM EST Height 177.8 cm (5' 10 ) 01/24/2024 1:43 PM EST Body Mass Index 36.01 01/24/2024 1:43 PM EST Plan of Treatment Upcoming Encounters Date Type Department Care Team (Late st Contact Info) Description 07/24/2024 1:30 PM EDT Office Visit [facility] [address] [place] [phone] Rah Dawson MD [address] [address] Health Maintenance Due Date Last Done Comments Hepatitis C Virus Screening 1965 Pneumococcal Vaccine: Pediatric (0-5 Years) and At-Risk Patients (6 to 49 Years) (1 of 2 - PCV) 04/21/1969 HIV Screening 04/21/1976 DTaP/Tdap/Td Vaccines (1 - Tdap) 04/21/1982 Pneumococcal Vaccines 50+ (1 of 2 - PCV) 04/21/1982 Colonoscopy 04/21/2008 Zoster (Shingles) Vaccine (1 of 2) 04/21/2013 RSV Vaccine 60 years and older and Patients (1 - Risk 60-74 years 1-dose series) 2023 Influenza Vaccine 09/07/2023 11/28/2020, 01/02/2019, 01/05/2018 COVID-19 Vaccine (4 - 4-2 5 season) 2023 02/02/2021, 06/15/2020, 05/23/2020 Hepatitis B Vaccines Aged Out No long er eligible based on patient's age to complete this topic Advance Directives * Full Code (Latest Code Status on File) Date Activated Date Inactivated Comments 06/20/2022 10:27 AM Decision thor oughly discussed with: Patient * Full Code Date Activated Date Inactivated Comments 12/11/2020 11:12 AM 06/20/2022 10:27 AM Care Teams Test Desk Supervisor Relationship Specialty Start Date End Date Pcp, Lashell PCP - General General Medicine 08/18/23
--- OUTSIDE RECORDS SUMMARY | 2024-04-18 14:19 | XMS_ITS ---
Author Name [facility] Organization Unknown History of Medication Use Medication Directions Dispensed Refills Start Date End Date Stat doxylamine-pyridoxine 10-10 MG Tablet Delayed Response Take 50 mg by mouth daily. active cholecalciferol (CHOLECALCIFEROL) 25 MCG (1000 UT) tablet Take 1 tablet (1,000 Units total) by mouth daily. Do not start before December 18, 2020. 12/18/2020 active carbidopa-levodopa (SINEMET) 25-100 MG per tablet Take 2 tablets by mouth 3 (three) times a day. 05/08/2023 08/23/2023 aborted apixaban (ELIQUIS) 5 MG tablet Take 1 tablet (5 mg total) by mouth 2 (two) times a day. active lisinopril (PRINIVIL,ZeSTRIL) 10 MG tablet Take 10 mg by mouth daily. active carbidopa-levodopa (SINEMET) 25-100 MG per tablet Take 1.5 tablets by mouth 3 (three) times a day. 04/26/2023 05/08/2023 aborted atorvastatin (LIPITOR) 80 MG tablet Take 1 tablet (80 mg total) by mouth daily. Do not start before December 18, 2020. 12/18/2020 active Heparin Sodium, Porcine, (heparin, porcine,) 5000 unit/mL injection Inject 1 mL (5,000 Units total) under the skin every 8 (eight) hours around the clock. 12/17/2020 active Problems Problem Status Onset Date Problem Type Date of Resoluti on Source Rubral tremor active [facility] Atrial fibrillation active 2023-04-26 ProblemAct [facility] Acute ischemic stroke active 2020-12-11 ProblemAct [facility] Encounters Encounter Type Encounter Reason Primary Diagnosis Location Date Ambulatory Other specified forms of tremor Other specified forms of tremor [facility] 01/24/2024 Ambulatory Other voice and resonance disorders Other voice and resonance disorders [facility] 08/23/2023 Ambulatory Other specified forms of tremor Other specified forms of tremor [facility] 04/26/2023 Ambulatory Explain My Surgery 05/25/2022 Inpatient Cerebral infarct ion, unspecified [facility] 12/11/2020 Care Team Organization Name Specialty Phone Email Start Date End Da te [facility] NO PCP Primary Care 08/18/2023 [facility] GELY WILSON Primary Care 05/23/2022 [facility] Gely Wilson Primary [facility] 12/11/2020 021 [facility] 12/11/2020
--- OUTSIDE RECORDS SUMMARY | 2024-04-18 14:19 | XMS_ITS | Clinical Summary ---
Author Organization [facility] Address [address] [facility] [place] [address] Phone Care Team Providers Care Glove Turner Name Role Phone Malissa Lugo Primary Care Provider [phone] Medications Eliquis 5 mg tablet TAKE 1 TABLET BY MOUTH TWICE A DAY 180 tablet 1 03/29/2024 Active Encounters Date Type Department Care Team Description 03/06/2024 Telephone [facility] [address] [facility] [address] [place] [phone] Mannie Mancera MD Med Refill from Last 3 Months Surgical History Surgery Date Site/Laterality Comments OTHER SURGICAL HISTORY PROCEDURE: HISTORY OTHER; COMMENT: Surgery Vas Deferens VASECTOMY PROCEDURE: TN VASECTOMY UNI/BI SPX W/POSTOP SEMEN EXAMS APPENDECTOMY PROCEDURE: HISTORICAL APPENDECTOMY Medical History Medical History Date Comments Cerebrovascular accident (CVA) (CMS/HCC) DX:Cerebrovascular accident (CVA) (HCC) Diabetes mellitus (CMS/HCC) DX:D iabetes mellitus (HCC) Diverticulosis of sigmoid colon DX:Diverticulosis of sigmoid colon Gout DX:Gout Hemorrhoids, internal DX:Hemorrh oids, internal History of hemoptysis DX:History of hemoptysis History of tinea pedis DX:Histor y of tinea pedis Impotence DX:Impotence Left thalamic infarction (CMS/HCC) DX:Left thalamic infarction (HCC) Class 1 obesity DX:Class 1 obesi ty Patent foramen ovale DX:Patent f oramen ovale Sleep apnea DX:Sleep apnea Steatosis of liver DX:Steatosis of liver Anaplasmosis DX:Anaplasmosis Eczema, dyshidrotic DX:Eczema, d yshidrotic Family History Medical History Relation Name Comments Alcohol abuse Brother Lung cancer Brother Other: Asperger's Syndrome Brother Other: Histiocytosis X Brother Other: Jaziel's disease Brother Heart attack Father Heart failure Father Other: Gout Father Other: Heart Attack Father Other: Valvular heart disease Mother Relation Name Status Comments Brother Father Mother Social History Tobacco Use Types Packs/Day Years Used Date Smoking Tobacco: Some Days Smokeless Tobacco: Never Alcohol Use Standard Drinks/Week Comments Yes 0 (1 standard drink = 0.6 oz pur e alcohol) Sex and Gender Information Value Date Recorded Sex Assigned at Not on file Legal Sex Male 2:06 PM EST Gender Identity Not on file Sexual Orientation Not on file Obstetrics History Last Filed Vital Signs Vital Sign Reading Time Taken Comments Blood Pressure 120/70 11/06/2023 3:29 PM EDT Sit ting L Arm Pulse 66 11/06/2023 3:29 PM EDT Temperature - - Respiratory Rate - - Oxygen Saturation - - Inhaled Oxygen Concentration - - Weight 114 kg (252 lb) 11/06/2023 3:29 PM EDT Height 177.8 cm (5' 10 ) 11/06/2023 3:29 PM EDT Body Mass Index 36.16 11/06/2023 3:29 PM EDT Plan of Treatment Health Maintenance Due Date Last Done Comments DTaP,Tdap,and Td Vaccines (1 - Tdap) 04/21/1982 Pneumococcal Vaccine: 50+ Ye ars (1 of 2 - PCV) 04/21/1982 Pneumococcal Vaccine: Pediat rics (0 to 5 Years) and At-Risk Patients (6 to 64 Years) (1 of 2 - PCV) 04/21/1982 Zoster Vaccines (1 of 2) 04/21/2013 Cholesterol Screening (Lipid Panel) 01/16/2022 Colorectal Cancer Screening: Colonoscopy 01/16/2022 Depression Screening 01/16/2022 HIV Screening 01/16/2022 Hepatitis C Screening 01/16/2022 Hypertension/CHF/CAD Annual BMP Blood Test 01/16/2022 Social Influencers of Health Screening 01/16/2022 RSV Immunization Patients 60 + Years Old (1 - Risk 60-74 years 1-dose series) 2023 COVID-19 Vaccine (2023-2 5 season) 2023 Influenza Vaccine (#1) 2023 HIB Vaccines Aged Out No longer eligi ble based on patient's age to complete this topic HPV Vaccines Aged Out No longer eligi ble based on patient's age to complete this topic Hepatitis A Vaccines Aged Out No long er eligible based on patient's age to complete this topic Hepatitis B Vaccines Aged Out No long er eligible based on patient's age to complete this topic IPV Vaccines Aged Out No longer eligi ble based on patient's age to complete this topic MMR Vaccines Aged Out No longer eligi ble based on patient's age to complete this topic Meningococcal ACWY Vaccine Aged Out N o longer eligible based on patient's age to complete this topic Meningococcal B Vacine Aged Out No lo nger eligible based on patient's age to complete this topic RSV Immunization Patients Un james 20 months Aged Out No longer eligible b ased on patient's age to complete this topic Varicella Vaccines Aged Out No longer eligible based on patient's age to complete this topic Advance Directives Documents on File Type Date Recorded Patient Dicer Operator Expl anation Health Care Decision (hx) 12/21/2020 AD CAMARGO DIRECTIVE Health Care Decision (hx) 12/21/2020 AD CAMARGO DIRECTIVE Health Care Decision (hx) 12/21/2020 AD CAMARGO DIRECTIVE Care Teams Glove Turner Relationship Specialty Start Date End Date Malissa Lugo PA [address] [place] [id number] PCP - General 02/15/23
--- OUTSIDE RECORDS SUMMARY | 2024-04-18 14:19 | XMS_ITS | Encounter Summary ---
Author Organization [facility] Address [address] [place] [address] Care Team Providers Care Deployment Technician Name Role Phone Gely Joseph MD Primary Care Provider Pcp, No Primary Care Provider Unavailabl e Encounter Details Date Type Department Care Team (Late st Contact Info) Description 05/24/2022 Telephone [facility] [address] [place] [phone] Pcp, No Social History Tobacco Use Types Packs/Day Years Used Date Smoking Tobacco: Never Assessed Sex and Gender Information Value Date Recorded Sex Assigned at Not on file Gender Identity Not on file Sexual Orientation Not on file COVID-19 Exposure Response Date Recorded In the last 10 days, have yo u been in contact with someone who was confirmed or suspected to have Coronavirus/COVID-19? No / Unsure 05/24/2022 3:51 PM EDT documented as of this encounter Miscellaneous Notes * Telephone Encounter - Mayra Rankin - 05/24/2022 3:52 PM EDT Initial Patient Contact Template Initial Patient Contact: Patient was screened for MERS/EBOLA per agency policy. Patient was screened for Novel Coronavirus (COVID-19). Patient information confirmed and system updated Additional Information: Initial contact made with patient's daughter Phyllis Does patient agree to confine pets? Yes Have you or anyone in your house been exposed to someone with Monkey Pox? Do you or anyone in your house have a new rash? Have you or anyone in your house tested positive for COVID-19 virus in the past 10 days? Have you or anyone in your house been exposed to someone with COVID-19 in the past 10 days? Do you or anyone in your house have any of the following symptoms? Fever or chills ??? New cough ??? New shortness of breath or difficulty breathing ??? Extreme fatigue ??? New muscle or body aches ??? New headache ??? New loss of taste or smell ??? Sore throat ??? New congestion or runny nose ??? New GI symptoms of nausea, vomiting or diarrhea If answer yes to any of the above questions proceed with visit with appropriate PPE (Gown, Gloves, N95, Face shield, MRSA kit - do not bring laptop/clinical bag into home, encourage patient to wear surgical mask) Novel Coronavirus (COVID-19) Screenin. Have you received the COVID vaccination? (Yes or No) yes 2. In the last 14 days, have you, or any of your family, household members, friends or caregivers out of the country or had contact with a symptomatic (fever, cough, SOB, respiratory illness) person that has traveled to the affected country? No / Yes Content of the screen prior to start of care and when calling to schedule each visit: ??? Have you taken your temperature today? What was your temperature? Are you experiencing: ??? Fever greater than 100 degree ??? cough ??? shortness of breath ??? fatigue or muscle aches ??? nausea, vomiting or diarrhea If answer no to all questions, no further action. If fever greater than 100 degree or answer ???Yes?? to any symptom, contact the marine steam fitter helpercommercial manager staff will be wearing a mask to help protect you and we ask that you and your family or visitors wear a mask to protect them. Are you in agreement? * If patient refusal escalate to Food Concession Manager documented in this encounter Plan of Treatment Upcoming Encounters Date Type Department Care Team (Late st Contact Info) Description 07/24/2024 1:30 PM EDT Office Visit [facility] [place] [address] [place] [phone] Rah Dawson MD [address] [place] [address] [address] [place] [address] documented as of this encounter Visit Diagnoses Not on filedocumented in this encounter Care Teams Deployment Technician Relationship Specialty Start Date End Date Gely Joseph MD PCP - General Internal Medicine 12/11/20 08/17/23 Pcp, No PCP - General General Medicine 08/18/23 documented as of this encounter
== END 2024-04-18 12:33 | disposition home or self-care (01) ==
LOC: HO.HMCFM 11:08
PROVIDERS: PCP Physician Assistant; Visit Provider Physician Assistant
DX: E11.29 Type 2 diabetes mellitus with other diabetic kidney complication (principal); I48.0 Paroxysmal atrial fibrillation; G21.4 Vascular parkinsonism; R80.9 Proteinuria, unspecified; G47.30 Sleep apnea, unspecified; I10 Essential (primary) hypertension; E78.2 Mixed hyperlipidemia

== ENCOUNTER → 2024-04-18 11:08 | Outpatient (BNVA) | payer OTHER, SELFPAY | PROVIDERS: PCP Physician Assistant; Visit Provider Physician Assistant | DX: E11.29 Type 2 diabetes mellitus with other diabetic kidney complication (principal); R80.9 Proteinuria, unspecified; G47.30 Sleep apnea, unspecified; I48.0 Paroxysmal atrial fibrillation; I10 Essential (primary) hypertension; E78.2 Mixed hyperlipidemia; G21.4 Vascular parkinsonism; Z79.899 Other long term (current) drug therapy | CPT/HCPCS: 83036; 96127 ==

== ENCOUNTER 2024-06-24 06:24 | Outpatient (REF) | payer OTHER, SELFPAY ==
[2024-06-24 07:51] LABS: Estimated Average Glucose 134 mg/dL; Hemoglobin A1C 186.8817 umol/L; Hemoglobin A1c % 6.3 % (<6.0); Total Hemoglobin (HGBA1C) 4151.7491 umol/L
[2024-06-24 07:53] LABS: Creatinine Urine 97.03 mg/dL; Microalbum/Creatinine Ratio Ur 126.7 ug/mg cr (<30)
[2024-06-24 08:03] LABS: Alanine Aminotransferase 14 U/L (0-40); Albumin Level 4.6 g/dL (3.5-5.0); Alkaline Phosphatase 126 U/L (39-117); Anion Gap 12 (12-20); Aspartate Amino Transferase 27 U/L (5-37); Bilirubin Total 0.5 mg/dL (0.0-1.0); Blood Urea Nitrogen 19 mg/dL (9-16); Calcium 9.5 mg/dL (8.4-10.2); Carbon Dioxide 27 mmol/L (22-29); Chloride 102 mmol/L (96-108); Estimated Glomerular Filt Rate > 60; Glucose Fasting 149 mg/dL (60-99); Potassium 4.3 mmol/L (3.3-5.1); Sodium 137 mmol/L (135-145); Total Protein 7.4 g/dL (6.5-8.0)
== END 2024-06-24 06:25 | disposition home or self-care (01) ==
LOC: HO.LAB 06:24
PROVIDERS: PCP Physician Assistant; Visit Provider Physician Assistant
DX: E11.29 Type 2 diabetes mellitus with other diabetic kidney complication (principal); R80.9 Proteinuria, unspecified
CPT/HCPCS: 36415; 80053; 82043; 82570; 83036; 84443

== ENCOUNTER 2024-06-26 10:41 | Outpatient (AMB) | payer OTHER, SELFPAY ==
--- NOTE | 2024-06-26 10:43 | A.OFFPC_ITS ---
Vital Signs 06/26/24 10:56 Height 5 ft 10 in Weight 253 lb 2 oz BMI 36.3 BP 126/78 Blood Pressure Location Rt brachial Position Sitting Respiration 14 Pulse 77 Pulse Source Pulse Oximeter Pulse Oximetry (%) 95 Oxygen Delivery Method Room Air Intake Visit Reasons: dm and bp check Intake Note: Diabetes and blood pressure follow up. Medical Technical Writer Required: No Allergies No Known Allergies Allergy (Verified 06/26/24 10:44) Medication List - Last Reconciled 06/26/24 by Malissa Lugo PA-C allopurinol 200 mg (2 x 100 mg) PO BEDTIME 90 days apixaban (Eliquis) 5 mg PO BID atorvastatin 80 mg PO DAILY carbidopa-levodopa 25-100 mg ER tabs PO cholecalciferol (vitamin D3) 50 mcg PO DAILY diltiazem HCl ER (DILT-XR) 180 mg PO DAILY empagliflozin (Jardiance) 10 mg PO QAM ferrous sulfate 325 mg PO DAILY flecainide 100 mg PO Q12H folic acid 1 mg PO DAILY gabapentin 600 mg (2 x 300 mg) PO TID 90 days lisinopril 10 mg PO DAILY metformin ER 500 mg PO DAILY 90 days methocarbamol 500 mg PO TID 90 days multivitamin 1 tab PO DAILY ofloxacin 0.3% 3 drps otic (ears) DAILY PRN thiamine mononitrate (vit B1) 100 mg PO DAILY Tobacco use date assessed: 04/18/24 Dental Screening Dental Screen Date: 09/06/23 HPI dm and bp check HPI Details Pt is a 59 y/o male who presents today for a follow up. He has a history of hypertension, hyperlipidemia, AFib, chronic anticoagulation, controlled type 2 diabetes, prior CVA with residual right-sided weakness , recent diagnosis of parkinsonism and gout. Endo: dx around 2013. He has been on metformin since that time. His is A1c is 6.3. He is on metformin Once a day. Does sometimes get GI upset. He is doing well with the Jardiance but does urinate frequently. No UTIs or yeast infections. Microalbuminuria noted. Last LDL was 46. He is on atorvastatin 80 mg. He is on an NICK inhibitor. Metformin causing nausea. Insurance denied Mounjaro CV: Blood pressure today in the office is 126/78. They are discussing the Watchman procedure. He is currently on diltiazem, flecainide, lisinopril and Eliquis. Follows with cardiology. Last saw Dr. Mancera in March. Musculoskeletal: He is on gabapentin 600 mg 3 times a day and methocarbamol 3 times a day. He has been on this regimen since his stroke in feels well with this. He is on allopurinol for gout prevention. Neuro: He has a right arm, hand and right leg and vocal tremor. He followed by neurology in [place] and he ended up meeting with a board of neurologists. He states that they believe the parkinsonism is related to his stroke however, it is recently progressing. He plans to follow up with them Colonoscopy: Believes he is due for this. [facility] Medical History (Updated 12/13/23 @ 11:26 by Malissa Lugo PA-C) CVA (cerebral vascular accident) Right sided weakness Paroxysmal A-fib Hypertension Hyperlipidemia Surgical History Hx of appendectomy H/O: vasectomy Family History Mother Valvular heart disease Father Congestive heart failure Heart failure Gout Brother Alcoholic Aspergers' syndrome Lung cancer Histiocytosis Wilsons disease Other Substance use Social History (Updated 04/18/24 @ 13:12 by Theresa Alonzo CMA) Housing: House Alcohol intake: current Comment: sometimes Patient Tobacco Use Status: Current someday Tobacco user Tobacco use type: Cigar (2 a week at the most) Years Smoked: Once a week if that e-Cigarette/Vaping Use: Never Used Second Hand Smoke Exposure: No service: No Current occupational status: employed 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 Current occupational exposures/hazards: No Cognitive needs: No Hearing needs: No Vision needs: No Questionnaire Thrive Questionnaire Date Thrive assessed: 02/21/24 I am a: Patient What is your living situation today?: I have a steady place to live Within the past 12 months, did the food you bought not last and you didn't have the money to get more?: Never true Within the past 12 months, did you worry whether your food would run out before you got money to buy more?: Never true Do you have trouble paying for medicines?: No Do you have trouble getting transportation to medical appointments?: No Do you have trouble paying your heating and electricity bill?: No Do you have trouble taking care of your child, family member or friend?: No Do you have trouble with day-to-day activities such as bathing, preparing meals, shopping, managing finances, etc.?: No Are you currently unemployed and looking for a job?: No Are you interested in more education?: No Please select the resources that you would like help with: None Currently or been in a relationship where the following occur: No concerns reported THRIVE Score: 0 Physical exam (Primary Care) Vital Signs: Last Vital Signs Pulse 77 06/26/24 10:56 Resp 14 06/26/24 10:56 BP 126/78 06/26/24 10:56 Pulse Ox 95 06/26/24 10:56 Oxygen Delivery Method Room Air 06/26/24 10:56 BMI result Body Mass Index 36.3 Tobacco/Smoking Status: Tobacco use Status Tobacco use date assessed 04/18/24 06/26/24 10:51 Patient Tobacco Use Status Current someday Tobacco 06/26/24 10:51 Tobacco use type Cigar (2 a week at the most) 06/26/24 10:51 e-Cigarette/Vaping Use Never Used 06/26/24 10:51 Thrive Assessment: Date of Thrive Assessment Date Thrive assessed 02/21/24 06/26/24 10:51 Currently or been in a relationship where the following occur: No concerns reported Const Orientation/consciousness: patient oriented x3 HENMT Ears: hearing grossly normal bilaterally Neck Thyroid: Thyroid normal Lymphatic: no lymphadenopathy noted Resp Auscultation: clear to auscultation bilaterally Cardio Rate: regular rate Rhythm: regular rhythm Heart sounds: S1 normal heart sound present and S2 normal heart sound present GI Inspection: Yes normal to inspection Palpation (GI): Soft to palpation and Other GI palpation findings present (nontender, no cva tenderness) Auscultation: normoactive bowel sounds Rectal Exam - Male: Yes deferred Skin General skin exam: no rashes or lesions noted Neuro General: patient oriented x3, gait normal and no focal motor deficits Coding Level of Care Code Est Pt Level 4 (05644) Complex EM visit Add On G2211 Diagnoses Mixed hyperlipidemia E78.2 Hyperlipidemia type: mixed hyperlipidemia Primary hypertension I10 Hypertension type: primary hypertension Paroxysmal A-fib I48.0 Microalbuminuria due to type 2 diabetes mellitus E11.29; R80.9 Controlled type 2 diabetes mellitus with microalbuminuria, without long-term current use of insulin E11.29; R80.9 Diabetes mellitus complication detail: with diabetic microalbuminuria Assessment & Plan Assessment & Plan (1) Hyperlipidemia: Code(s): E78.5 - Hyperlipidemia, unspecified Category: Medical Qualifiers: Hyperlipidemia type: mixed hyperlipidemia Qualified Code(s): E78.2 - Mixed hyperlipidemia Plan: Continue atorvastatin (2) Hypertension: Code(s): I10 - Essential (primary) hypertension Category: Medical Qualifiers: Hypertension type: primary hypertension Qualified Code(s): I10 - Essential (primary) hypertension Plan: WNL. Continue current regimen (3) Paroxysmal A-fib: Code(s): I48.0 - Paroxysmal atrial fibrillation Category: Medical Plan: Currently controlled. (4) Microalbuminuria due to type 2 diabetes mellitus: Code(s): E11.29 - Type 2 diabetes mellitus with other diabetic kidney complication; R80.9 - Proteinuria, unspecified Category: Medical Plan: On Jardiance. (5) Controlled type 2 diabetes mellitus with kidney complication, without long- term current use of insulin: Code(s): E11.29 - Type 2 diabetes mellitus with other diabetic kidney complication Category: Medical Qualifiers: Diabetes mellitus complication detail: with diabetic microalbuminuria Qualified Code(s): E11.29 - Type 2 diabetes mellitus with other diabetic kidney complication; R80.9 - Proteinuria, unspecified Plan: Not tolerating metformin. Increase dose of Jardiance. We will attempt to get Trulicity covered. Discussed risks and benefits and adverse effects of the medication. Orders: Orders Prostate Specific Antigen Scr Today E11.29 - Type 2 diabetes mellitus with other diabetic kidney complication, E78.2 - Mixed hyperlipidemia, I10 - Essential (primary) hypertension, I48.0 - Paroxysmal atrial fibrillation, R80.9 - Proteinuria, unspecified, Z01.89 - Encounter for other specified special examinations Comprehensive Met. Panel Today E11.29 - Type 2 diabetes mellitus with other diabetic kidney complication, E78.2 - Mixed hyperlipidemia, I10 - Essential (primary) hypertension, I48.0 - Paroxysmal atrial fibrillation, R80.9 - Proteinuria, unspecified Complete Blood Count Auto Diff Today E11.29 - Type 2 diabetes mellitus with other diabetic kidney complication, E78.2 - Mixed hyperlipidemia, I10 - Essential (primary) hypertension, I48.0 - Paroxysmal atrial fibrillation, R80.9 - Proteinuria, unspecified Lipid Panel Today E11.29 - Type 2 diabetes mellitus with other diabetic kidney complication, E78.2 - Mixed hyperlipidemia, I10 - Essential (primary) hypertension, I48.0 - Paroxysmal atrial fibrillation, R80.9 - Proteinuria, unspecified Hemoglobin A1c Today E11.29 - Type 2 diabetes mellitus with other diabetic kidney complication, E78.2 - Mixed hyperlipidemia, I10 - Essential (primary) hypertension, I48.0 - Paroxysmal atrial fibrillation, R73.01 - Impaired fasting glucose, R80.9 - Proteinuria, unspecified TSH reflex Free T4 Today E11.29 - Type 2 diabetes mellitus with other diabetic kidney complication, E78.2 - Mixed hyperlipidemia, I10 - Essential (primary) hypertension, I48.0 - Paroxysmal atrial fibrillation, R80.9 - Proteinuria, unspecified Referrals Gastroenterology Referral Z12.11 - Encounter for screening for malignant neoplasm of colon Medications: New empagliflozin (Jardiance) 25 mg PO QAM 90 tabs 1RF dulaglutide (Trulicity) 0.75 mg (0.5 mL) subcut QWEEK 2 mL 3RF Discontinued empagliflozin (Jardiance) Discontinued Reason: Doctor's Order 10 mg PO QAM 90 tabs 0RF ofloxacin 0.3% Discontinued Reason: Doctor's Order 3 drps otic (ears) DAILY PRN metformin ER Discontinued Reason: Doctor's Order 500 mg PO DAILY 90 days 90 tabs 3RF
[2024-06-26 10:56] VITALS: BP 126/78; PULSE 77; RESP 14; O2SAT 95; BMI 36.3
--- OUTSIDE RECORDS SUMMARY | 2024-06-26 12:07 | XMS_ITS | Clinical Summary ---
Author Organization [facility] Address [address] [place] [address] Phone Care Team Providers Care Water Gas Operator Name Role Phone Malissa Lugo Primary Care Provider [phone] Medications Eliquis 5 mg tablet TAKE 1 TABLET BY MOUTH TWICE A DAY 180 tablet 1 03/29/2024 Active Surgical History Surgery Date Site/Laterality Comments OTHER SURGICAL HISTORY PROCEDURE: HISTORY OTHER; COMMENT: Surgery Vas Deferens VASECTOMY PROCEDURE: WI VASECTOMY UNI/BI SPX W/POSTOP SEMEN EXAMS APPENDECTOMY PROCEDURE: HISTORICAL APPENDECTOMY Medical History Medical History Date Comments Cerebrovascular accident (CV A) (CMS/HCC V24, CMS/HCC V28) DX:Cerebrovascular accident (CVA) (HCC) Diabetes mellitus (CMS/HCC V 24, CMS/HCC V28) DX:Diabetes mellitus (HCC) Diverticulosis of sigmoid colon DX:Diverticulosis of sigmoid colon Gout DX:Gout Hemorrhoids, internal DX:Hemorrh oids, internal History of hemoptysis DX:History of hemoptysis History of tinea pedis DX:Histor y of tinea pedis Impotence DX:Impotence Left thalamic infarction (CM S/HCC V24, CMS/HCC V28) DX:Left thalamic infarction (HCC) Class 1 obesity [...] 01/16/2022 Social Influencers of Health Screening 01/16/2022 COVID-19 Vaccine ( - 2023-2 5 season) 2023 Influenza Vaccine (Season Ended) 2024 RSV Immunization Adult Patie nts (1 - 1-dose 75+ series) 04/21/2038 HIB Vaccines Aged Out No longer eligi [...] age to complete this topic Meningococcal B Vaccine Aged Out No l onger eligible based on patient's age to complete this topic RSV Immunization Patients Un james 20 months Aged Out No longer eligible b ased on patient's age to complete this topic Varicella Vaccines Aged Out No longer eligible based on patient's age to complete this topic Advance Directives Documents on File Type Date Recorded Patient Unindentured Apprentice Expl anation Health Care Decision (hx) 12/21/2020 AD CAMARGO DIRECTIVE Health Care Decision (hx) 12/21/2020 AD CAMARGO DIRECTIVE Health Care Decision (hx) 12/21/2020 AD CAMRAGO DIRECTIVE Care Teams Water Gas Operator Relationship Specialty Start Date End Date Malissa Lugo PA [address] [place] [address] PCP - General 02/15/23
--- OUTSIDE RECORDS SUMMARY | 2024-06-26 12:07 | XMS_ITS | Clinical Summary ---
Author Organization [facility] Address [address] [place] [address] Care Team Providers Care Tire Mounter Name Role Phone Pcp, No Primary Care Provider Unavailabl e Allergies No known active allergies Medications metFORMIN (GLUCOPHAGE-XR) 500 MG 24 hr tabletIndications: Acute ischemic stroke (HCC) Take 1 tablet (500 mg total) by mouth 2 (two) times a day. 60 tablet 12/18/19 21 Active aspirin 81 MG chewable tabletIndications: Acute ischemic stroke (HCC) Chew 1 tablet (81 mg total) daily. Do not start before December 18, 2020. 12/19/19 21 Active atorvastatin (LIPITOR) 80 MG tabletIndications: Acute ischemic stroke (HCC) Take 1 tablet (80 mg total) by mouth daily. Do not start before December 18, 2020. 30 tablet 12/19/19 21 Active Additional Information Patient taking differently:80 mg Oral Daily,AM, Reported on 04/26/2023 clopidogrel (PLAVIX) 75 MG tabletIndications: Acute ischemic stroke (HCC) Take 1 tablet (75 mg total) by mouth daily. Do not start before December 18, 2020. 12/19/19 21 Active ferrous sulfate 325 (65 FE) MG EC tabletIndications: Acute ischemic stroke (HCC) Take 1 tablet (325 mg total) by mouth daily. Take 2 hours before or 4 hours after acid reducers. Do not start before December 18, 2020. 30 tablet 12/19/19 21 Active cholecalciferol (CHOLECALCIFEROL) 25 MCG (1000 UT) tabletIndications: Acute ischemic stroke (HCC) Take 1 tablet (1,000 Units total) by mouth daily. Do not start before December 18, 2020. 30 tablet 12/19/19 Active folic acid (FOLVITE) 1 MG tabletIndications: Acute ischemic stroke (HCC) Take 1 tablet (1 mg total) by mouth daily. Do not start before December 18, 2020. 30 tablet 12/19/19 21 Active Heparin Sodium, Porcine, (heparin, porcine,) 5000 unit/mL injectionIndicatio ns:Acute ischemic stroke (HCC) Inject 1 mL (5,000 Units total) under the skin every 8 (eight) hours around the clock. 1 mL 12/18/19 Active magnesium oxide 400 (241.3 Mg) MG Tab tabletIndications: Acute ischemic stroke (HCC) Take 1 tablet (400 mg total) by mouth daily. Do not start before December 18, 2020. tablet 12/19/19 Active methocarbamol (ROBAXIN) 500 MG tabletIndications: Acute ischemic stroke (HCC) Take 1 tablet (500 mg total) by mouth 3 (three) times a day as needed for muscle spasms. 12/18/19 Active ondansetron (ZOFRAN-ODT) 4 MG disintegrating tabletIndications: Acute ischemic stroke (HCC) Take 1 tablet (4 mg total) by mouth 4 times daily (every 6 hours) as needed for nausea or vomiting. Place tablet on tongue to dissolve. 20 tablet 12/18/19 Active thiamine mononitrate (VITAMIN B-1) 100 MG tabletIndications: Acute ischemic stroke (HCC) Take 1 tablet (100 mg total) by mouth daily. Do not start before December 18, 2020. tablet 12/19/19 Active traMADol (ULTRAM) 50 MG tablet Take [...] Take 1 tablet by mouth daily. Active doxylamine-pyridox ine 10-10 MG Tablet Delayed Response Take 50 [...] (10 mg total) by mouth every morning. 12/15/19 24 Active carbidopa-levodopa ER (SINEMET CR) 25-100 MG per tabletIndications: Rubral tremor Take 2 tablets by mouth 3 times a day. 540 tablet 3 01/24/20 24 Active Active Problems Problem Noted Date Diagnosed Date Atrial fibrillation 04/26/2023 04/26/2023 Acute ischemic stroke 12/11/2020 Overview (12/11/2020): Added automatically from request for surgery [id number] Family History Medical History Relation Name Comments [...] at Not on file Legal Sex Male 8:31 AM EDT Gender Identity Not on file Sexual Orientation [...] 1:30 PM EDT Office Visit [facility] [place] [address] [place] [id number] Rah Dawson MD [address], [place] [id number] Health Maintenance Due Date Last Done Comments Hepatitis C Virus Screening 1965 HIV Screening 04/21/1976 DTaP/Tdap/Td Vaccines (1 - Tdap) 04/21/1982 Pneumococcal Vaccines 50+ (1 of 2 - PCV) 04/21/1982 Colonoscopy 04/21/2008 Zoster (Shingles) Vaccine (1 of 2) 04/21/2013 RSV Vaccine 60 years and older and Patients (1 - Risk 60-74 years 1-dose series) 2023 COVID-19 Vaccine (4 - 2023-2 5 season) 2023 02/02/2021, 06/15/2020, 05/23/2020 Influenza Vaccine 09/06/2024 11/28/2020, 01/02/2019, 01/05/2018 Hepatitis B Vaccines Aged Out No long er eligible based on patient's age to complete this topic Insurance [facility] Advance Directives * Full Code (Latest Code Status on File) Date Activated Date Inactivated Comments 06/20/2022 10:27 AM Decision thor oughly discussed with: Patient * Full Code Date Activated Date Inactivated Comments 12/11/2020 11:12 AM 06/20/2022 10:27 AM Care Teams Tire Mounter Relationship Specialty Start Date End Date Pcp, No PCP - General General Medicine 08/18/23
--- OUTSIDE RECORDS SUMMARY | 2024-06-26 12:07 | XMS_ITS | Encounter Summary ---
Author Organization [facility] Address [address] [place] [address] Care Team Providers Care Optometrist Assistant Name Role Phone Gely Joseph MD Primary Care Provider [phone] Pcp, No Primary Care Provider Unavailabl e Encounter Details Date Type Department Care Team (Late st Contact Info) Description 05/24/2022 Telephone [facility] Home [address] [place] [address] Pcp, No Social History Tobacco Use Types [...] answer ???Yes?? to any symptom, contact the help desk team leaderclerical manager staff will be wearing a mask to help protect you and we ask that you and your family or visitors wear a mask to protect them. Are you in agreement? * If patient refusal escalate to Chief Station Engineer documented in this encounter Plan of Treatment Upcoming Encounters Date Type Department Care Team (Late st Contact Info) Description 07/24/2024 1:30 PM EDT Office Visit [facility] [place] [address] [place] [address] Rah Dawson MD [address] [address] documented as of this encounter Visit Diagnoses Not on filedocumented in this encounter Care Teams Optometrist Assistant Relationship Specialty Start Date End Date Gely Joseph MD PCP - General Internal Medicine 12/11/20 08/17/23 Pcp, No PCP - General General Medicine 08/18/23 documented as of this encounter
== END 2024-06-26 11:56 | disposition home or self-care (01) ==
LOC: HO.HMCFM 10:42
PROVIDERS: PCP Physician Assistant; Visit Provider Physician Assistant
DX: E78.2 Mixed hyperlipidemia (principal); I10 Essential (primary) hypertension; I48.0 Paroxysmal atrial fibrillation; E11.29 Type 2 diabetes mellitus with other diabetic kidney complication; R80.9 Proteinuria, unspecified

== ENCOUNTER → 2024-06-26 10:41 | Outpatient (BNVA) | payer OTHER, SELFPAY | PROVIDERS: PCP Physician Assistant; Visit Provider Physician Assistant | DX: Z13.89 Encounter for screening for other disorder (principal) ==

== ENCOUNTER 2024-10-09 06:05 | Outpatient (REF) | payer OTHER, SELFPAY ==
--- OUTSIDE RECORDS SUMMARY | 2024-10-03 23:59 | XMS_ITS | Continuity of Care Document ---
Author Organization [facility] Address [address] [place] [id number]- Care Team Providers Care Roller Operator Name Role Phone Malissa Redding B Primary Care Physician Encounter [facility] Date(s): 09/03/24 - 10/03/24 [facility] [address], [place] [address] Encounter Type: Triage Allergies, Adverse Reactions, Alerts No Known Allergies Immunizations Given and Recorded Vaccine Date Status Refusal Reason SARS-CoV-2 (COVID-19) mRNA BNT-162b2 vac 02/02/21 Given SARS-CoV-2 (COVID-19) mRNA BNT-162b2 vac 06/15/20 Recorded SARS-CoV-2 (COVID-19) mRNA BNT-162b2 vac 05/23/20 Recorded influenza virus vaccine, inactivated 11/28/20 Frank rded influenza virus vaccine, inactivated 1 01/02/19 Gi brittany zoster vaccine, inactivated 11/28/20 Recorded Influenza Virus Vaccine (oldterm) 01/05/18 Recorde d pneumococcal 23-valent vaccine 06/30/17 Recorded 1Result Comment: [id number] Medications allopurinol 100 mg oral tablet See Instructions, TAKE 2 TABLETS BY MOUTH EVERY EVENING, # 180 tablet, Refills 1, Maintenance, 11/08/23 9:15:00 AM EDT, Instructions Replace Required Details, Route to Pharmacy Electronically, [facility] [id number], 179, cm, 04/14/23 8:51:00 EST, Height, 109, kg, 06/07/22 15:21:00 EDT, Dry Weight Start Date: 11/08/23 Status: Ordered Medication Dispense Status: Completed Quantity: 180.0 Unit: tablet Total Allowed Fills: 1 Fills Dispensed: 0 allopurinol 100 mg oral tablet 2, tablet, By Mouth, Daily in PM, # 180 tablet, Refills 1, Tot. Refills 1, Maintenance, 07/18/23 8:50:00 AM EDT, Route to Pharmacy Electronically, [facility]/pharmacy #[id number], 179, cm, 04/14/23 8:51:00 EST, Height, 109, kg, 06/07/22 15:21:00 EDT, Dry Weight Start Date: 07/18/23 Status: Ordered Medication Dispense Status: Completed Quantity: 180.0 Unit: tablet Total Allowed Fills: 2 Fills Dispensed: 0 Aspirin Low Dose 81 mg oral delayed release tablet 1 tablet, By Mouth, Daily, # 90 tablet, 1 Refills, Maintenance, 05/06/24 10:04:00 AM EDT, [facility] [id number], 179, cm, 03/14/24 16:08:00 EST, Height, 109, kg, 06/07/22 15:21:00 EDT, Dry Weight Start Date: 05/06/24 Status: Ordered Medication Dispense Status: Completed Quantity: 90.0 Unit: tablet Total Allowed Fills: 1 Fills Dispensed: 0 atorvastatin 80 mg oral tablet 1 tablet, By Mouth, Daily, # 90 tablet, 0 Refills, Maintenance, 07/28/23 9:49:00 AM EDT, [facility]/pharmacy #[id number], 179, cm, 04/14/23 8:51:00 EST, Height, 109, kg, 06/07/22 15:21:00 EDT, Dry Weight Start Date: 07/28/23 Status: Ordered Medication Dispense Status: Completed Quantity: 90.0 Unit: tablet Total Allowed Fills: 1 Fills Dispensed: 0 carbidopa-levodopa 25 mg-100 mg oral tablet 1 tablet, By Mouth, 3 times a day, # 90 tablet, 0 Refills, Maintenance, 05/05/23 9:37:00 PM EDT, [facility], 30, TAKE 1 TABLET BY MOUTH THREE TIMES A DAY, 179, cm, 04/14/23 8:51:00 EST, Height, 109, kg, 06/07/22 15:21:00 EDT, Dry Weight Start Date: 05/05/23 Status: Ordered Medication Dispense Status: Completed Quantity: 90.0 Unit: tablet Total Allowed Fills: 1 Fills Dispensed: 0 colchicine 0.6 mg oral tablet 1, tablet, By Mouth, 2 times a day, # 60 tablet, Refills 0, Tot. Refills 0, Maintenance, 07/27/23 11:02:00 PM EDT, Route to Pharmacy Electronically, [facility]/pharmacy #[id number], 179, cm, 04/14/23 8:51:00 EST, Height, 109, kg, 06/07/22 15:21:00 EDT, Dry Weight Start Date: 07/27/23 Status: Ordered Medication Dispense Status: Completed Quantity: 60.0 Unit: tablet Total Allowed Fills: 1 Fills Dispensed: 0 colchicine 0.6 mg oral tablet See Instructions, TAKE 1 TABLET BY MOUTH TWICE A DAY NEEDED FOR GOUT FLARE, # 60 tablet, Refills0, Maintenance, 07/31/23 6:59:00 PM EDT, Instructions Replace Required Details, Route to Pharmacy Electronically, [id number], 179, cm, 04/14/23 8:51:00 EST, Height, 109, kg, 06/07/22 15:21:00 EDT, Dry Weight Start Date: 07/31/23 Status: Ordered Medication Dispense Status: Completed Quantity: 60.0 Unit: tablet Total Allowed Fills: 1 Fills Dispensed: 0 Daily Ángel oral tablet 1 tablet, By Mouth, Daily, # 30 tablet, 5 Refills, Maintenance, 01/08/24 8:03:00 PM EST, [facility] [address], 30, TAKE 1 TABLET BY MOUTH EVERY DAY, 179, cm, 04/14/23 8:51:00 EST, Height, 109, kg, 06/07/2314:21:00 EDT, Dry Weight Start Date: 01/08/24 Status: Ordered Medication Dispense Status: Completed Quantity: 30.0 Unit: tablet Total Allowed Fills: 1 Fills Dispensed: 0 Dilt-XR 180 mg/24 hours oral capsule, extended release 1 capsule = 180 mg, By Mouth, Daily, # 30 capsule, 1 Refills, Maintenance, 02/02/21 6:02:00 PM EST,CD Capsule, [facility]/pharmacy #[id number], Partial fill upon patient request if the prescription is for a schedule II opioid drug., 178, cm, 01/28/21 18:06:00 EST, Height Start Date: 02/02/21 Status: Ordered Medication Dispense Status: Completed Quantity: 30.0 Unit: capsule Total Allowed Fills: 2 Fills Dispensed: 0 Eliquis 5 mg oral tablet 1 tablet = 5 mg, By Mouth, Every 12 hours, # 60 tablet, 2 Refills, Maintenance, 02/02/21 6:01:00 PMEST, Tablet, [facility]/pharmacy #[id number], Partial fill upon patient request if the prescription is for a schedule II opioid drug., 178, cm, 01/28/21 18:06:00 EST, Height Start Date: 02/02/21 Status: Ordered Medication Dispense Status: Completed Quantity: 60.0 Unit: tablet Total Allowed Fills: 3 Fills Dispensed: 0 ferrous sulfate 325 mg oral tablet 1 tablet, By Mouth, Daily, # 30 tablet, 0 Refills, Maintenance, 09/20/23 1:44:00 PM EDT, [facility], 179, cm, 04/14/23 8:51:00 EST, Height, 109, kg, 06/07/22 15:21:00 EDT, Dry Weight Start Date: 09/20/23 Status: Ordered Medication Dispense Status: Completed Quantity: 30.0 Unit: tablet Total Allowed Fills: 1 Fills Dispensed: 0 flecainide 50 mg oral tablet 50 mg, 1, tablet, By Mouth, Every 12 hours, # 180 tablet, Refills 0, Maintenance, 05/19/22 8:28:00 AM EDT, Partial fill upon patient request if the prescription is for a schedule II opioid drug. Start Date: 05/19/22 Status: Ordered Medication Dispense Status: Completed Quantity: 180.0 Unit: tablet Total Allowed Fills: 1 Fills Dispensed: 0 folic acid 1 mg oral tablet 1, tablet, By Mouth, Daily, # 90 tablet, Refills 1, Maintenance, 05/05/23 11:23:00 AM EDT, Route to Pharmacy Electronically, [id number], 179, cm, 04/14/23 8:51:00 EST, Height, 109, kg, 06/07/22 15:21:00 EDT, Dry Weight Start Date: 05/05/23 Status: Ordered Medication Dispense Status: Completed Quantity: 90.0 Unit: tablet Total Allowed Fills: 1 Fills Dispensed: 0 gabapentin 300 mg oral capsule See Instructions, TAKE 2 CAPSULES BY MOUTH 3 TIMES A DAY,X30 DAYS, # 180 capsule, Refills 0, Maintenance, 09/18/23 4:43:00 PM EDT, Instructions Replace Required Details, Route to Pharmacy Electronically, [facility], 179, cm, 04/14/23 8:51:00 EST, Height, 109, kg, 06/07/22 15:21:00 EDT, Dry Weight Start Date: 09/18/23 Status: Ordered Medication Dispense Status: Completed Quantity: 180.0 Unit: capsule Total Allowed Fills: 1 Fills Dispensed: 0 gabapentin 300 mg oral capsule 2, capsule, By Mouth, 3 times a day, X30 DAYS., # 180 capsule, Refills 0, Tot. Refills 0, Maintenance, 09/19/23 9:49:00 AM EDT, Route to Pharmacy Electronically, [facility]/pharmacy #[id number], 179, cm, 04/14/23 8:51:00 EST, Height, 109, kg, 06/07/22 15:21:00 EDT, Dry Weight Start Date: 09/19/23 Status: Ordered Medication Dispense Status: Completed Quantity: 180.0 Unit: capsule Total Allowed Fills: 1 Fills Dispensed: 0 Jardiance 10 mg oral tablet TAKE 1 TABLET BY MOUTH EVERY DAY IN THE MORNING Start Date: 03/14/24 Status: Ordered Medication Dispense Status: Completed Total Allowed Fills: 1 Fills Dispensed: 0 lisinopril 20 mg oral tablet 1, tablet, By Mouth, Daily, # 90 tablet, Refills 1, Maintenance, 11/30/23 4:54:00 PM EDT, Route to Pharmacy Electronically, [id number], 179, cm, 04/14/23 8:51:00 EST, Height, 109, kg, 06/07/22 15:21:00 EDT, Dry Weight Start Date: 11/30/23 Status: Ordered Medication Dispense Status: Completed Quantity: 90.0 Unit: tablet Total Allowed Fills: 1 Fills Dispensed: 0 MetFORMIN (Eqv-Glucophage XR) 500 mg oral tablet, extended release 1 tablet, By Mouth, 2 times a day, # 180 tablet, 1 Refills, Maintenance, 05/05/23 11:23:00 AM EDT, [facility] [address], 179, cm, 04/14/23 8:51:00 EST, Height, 109, kg, 06/07/22 15:21:00 EDT, Dry Weight Start Date: 05/05/23 Status: Ordered Medication Dispense Status: Completed Quantity: 180.0 Unit: tablet Total Allowed Fills: 1 Fills Dispensed: 0 methocarbamol 500 mg oral tablet 1 tablet, By Mouth, 3 times a day, # 100 tablet, 0 Refills, Maintenance, 07/28/23 9:48:00 AM EDT, [facility]/pharm[facility] #[id number], 179, cm, 04/14/23 8:51:00 EST, Height, 109, kg, 06/07/22 15:21:00 EDT, Dry Weight Start Date: 07/28/23 Status: Ordered Medication Dispense Status: Completed Quantity: 100.0 Unit: tablet Total Allowed Fills: 1 Fills Dispensed: 0 Vitamin B1 100 mg oral tablet 100 mg, 1, tablet, By Mouth, Daily, # 90 tablet, Refills 3, Tot. Refills 3, Maintenance, 06/15/22 6:25:00 AM EDT, Route to Pharmacy Electronically, [facility]/pharmacy #[id number], Partial fill upon patient request if the prescription is for a schedule II opioid drug., 179, cm, 06/10/22 13:25:00 EDT, Height, 109, kg, 06/07/22 15:21:00 EDT, Dry Weight Start Date: 06/15/22 Status: Ordered Medication Dispense Status: Completed Quantity: 90.0 Unit: tablet Total Allowed Fills: 4 Fills Dispensed: 0 Problem List Condition Confirmation Course Effective Dates Status H ealth Status Informant AF (atrial fibrillation) Confirmed Active Carotid artery stenosis Confirmed Active Cerebrovascular accident (CVA) Confirmed Active Fx C7 vertebra-closed Confirmed Active Adverse reaction to anesthetic agent 1 Confirmed Active Diabetes mellitus Confirmed Active Diverticulosis of sigmoid colon Confirmed Active Gout Confirmed Active History of hemoptysis Confirmed Active History of tinea pedis Confirmed Active Hyperlipidemia Confirmed Active Hypertensive disorder Confirmed Active Impotence Confirmed Active Hemorrhoids, internal Confirmed Active Radiculopathy of arm Confirmed Active Parkinsonism Confirmed Active Patent foramen ovale 2 Confirmed Active Penis problem Confirmed Active Polyp of colon Confirmed Active Severe obesity (BMI 35.0-39.9) with comorbidity Confirmed Active Sleep apnea Confirmed Active Steatosis of liver Confirmed Active Left thalamic infarction 3 Confirmed Active 1rash 2on echo 2020 3and left mesial temporal lobe 12/2020 Social History Social History Type Response Smoking Status Former smoker, quit more than 30 days ago; Type: Cigars entered on: 06/29/21 Sex Sex Representation Male (finding) Patient Care team information Care Team Personnel Name: Malissa Redding Position: Reference Physician Member Role: PCP Address: [address] [place] [id number]- Telecom: Name: Omkar Cervantes RN Position: Leonardo RN Member Role: Primary Care Nurse Name: Marcus Ellison MD Position: [facility] Renal MD Member Role: Lifetime Consulting Physician Address: [address] [place] [address] [address] [facility] [place] [address]- Telecom: Care Team Related Persons Name: MARYLU BROOKE Name: JOAQUIN BROOKE Name: JAMAAL LECHUGA Insurance Providers Guarantor name: [facility]ASON [facility] Health [facility] Information #: 1 Payer: [facility] Payer Identifier: LINDA Member Number: [id number] Group Number: [id number] Subscriber Identifier: NA Relationship to Subscriber: Spouse Coverage Type: Commercial Managed Care - HMO Coverage Verification Date: NA Telecom: NA Address:
--- OUTSIDE RECORDS SUMMARY | 2024-10-09 06:09 | XMS_ITS ---
Author Name [facility] Organization Unknown History of Medication Use Medication Directions Dispensed Refills Start Date End Date Stat carbidopa-levodopa (SINEMET) 25-100 MG per tablet Take 2 tablets by mouth 3 (three) times a day. 05/08/2023 08/23/2023 aborted carbidopa-levodopa (SINEMET) 25-100 MG per tablet Take 1.5 tablets by mouth 3 (three) times a day. 04/26/2023 05/08/2023 aborted atorvastatin (LIPITOR) 80 MG tablet Take 1 tablet (80 mg total) by mouth daily. Do not start before December 18, 2020. 12/18/2020 active cholecalciferol (CHOLECALCIFEROL) 25 MCG (1000 UT) tablet Take 1 tablet (1,000 Units total) by mouth daily. Do not start before December 18, 2020. 12/18/2020 active Heparin Sodium, Porcine, (heparin, porcine,) 5000 unit/mL injection Inject 1 mL (5,000 Units total) under the skin every 8 (eight) hours around the clock. 12/17/2020 active apixaban (ELIQUIS) 5 MG tablet Take 1 tablet (5 mg total) by mouth 2 (two) times a day. active doxylamine-pyridoxine 10-10 MG Tablet Delayed Response Take 50 mg by mouth daily. active lisinopril (PRINIVIL,ZeSTRIL) 10 MG tablet Take 10 mg by mouth daily. active Problems Problem Status Onset Date Problem Type Date of Resoluti on Source Rubral tremor active EncounterDiagnosisAct [facility] Atrial fibrillation active 2023-04-26 ProblemAct [facility] Acute ischemic stroke active 2020-12-11 ProblemAct [facility] Encounters Encounter Type Encounter Reason Primary Diagnosis Location Date Ambulatory Other specified forms of tremor Other specified forms of tremor [facility] 01/24/2024 Ambulatory Other voice and resonance disorders Other voice and resonance disorders [facility] 08/23/2023 Ambulatory Other specified forms of tremor Other specified forms of tremor [facility] 04/26/2023 Ambulatory [facility] 05/25/2022 Inpatient Cerebral infarct ion, unspecified [facility] 12/11/2020 Care Team Organization Name Specialty Phone Email Start Date End Da te [facility] NO PCP Primary Care 08/18/2023 [facility] GELY WILSON Primary Care 05/23/2022 025 [facility] 12/11/2020 04/24/2024 [facility] Gely Wilson Primary Care 12/11/2020 021
--- OUTSIDE RECORDS SUMMARY | 2024-10-09 06:09 | XMS_ITS | Encounter Summary ---
Author Organization [facility] Address [address] [place] [address] Care Team Providers Care Chicken Fancier Name Role Phone Gely Joseph MD Primary Care Provider [phone] Pcp, No Primary Care Provider Unavailabl e Encounter Details Date Type Department Care Team (Late st Contact Info) Description 05/24/[address] [facility] at Home [address] [place] [address] Pcp, No Social History Tobacco [...] answer ???Yes?? to any symptom, contact the recruiting team leadlaboratory manager staff will be wearing a mask to help protect you and we ask that you and your family or visitors wear a mask to protect them. Are you in agreement? * If patient refusal escalate to Chemical Laboratory Assistant documented in this encounter Plan of Treatment Not on file documented as of this encounter Visit Diagnoses Not on filedocumented in this encounter Care Teams Chicken Fancier Relationship Specialty Start Date End Date Gely Joseph MD PCP - General Internal Medicine 12/11/20 08/17/23 Pcp, No PCP - General General Medicine 08/18/23 documented as of this encounter
--- OUTSIDE RECORDS SUMMARY | 2024-10-09 06:09 | XMS_ITS | Clinical Summary ---
Author Organization [facility] Address [address] [facility] [place] [address] Phone Care Team Providers Care Lacer And Tier Name Role Phone Malissa Lugo Primary Care Provider [phone] Medications Eliquis 5 mg tablet TAKE 1 TABLET BY MOUTH TWICE A DAY 180 tablet 1 03/29/2024 Active Surgical History Surgery Date Site/Laterality Comments OTHER SURGICAL HISTORY PROCEDURE: HISTORY OTHER; COMMENT: Surgery Vas Deferens VASECTOMY PROCEDURE: [place] VASECTOMY UNI/BI SPX W/POSTOP SEMEN EXAMS APPENDECTOMY [...] ars (1 of 2 - PCV) 04/21/1982 Zoster Vaccines (1 of 2) 04/21/2013 Cholesterol Screening (Lipid Panel) 01/16/2022 Colorectal Cancer Screening: Colonoscopy 01/16/2022 HIV Screening 01/16/2022 Hepatitis C Screening 01/16/2022 Hypertension/CHF/CAD Annual BMP Blood Test 01/16/2022 Social Influencers of Health Screening 01/16/2022 COVID-19 Vaccine (1 - 2023-2 5 season) 2023 Depression Screening 02/07/2024 Influenza Vaccine (#1) 2024 RSV Immunization Adult Patie nts (1 [...] Documents on File Type Date Recorded 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
--- OUTSIDE RECORDS SUMMARY | 2024-10-09 06:09 | XMS_ITS | Clinical Summary ---
Author Organization [facility] Address [address] [place] [address] Care Team Providers Care Manager Recruiting Name Role Phone Pcp, No Primary Care [...] (12/11/2020): Added automatically from request for surgery [id number] Family History Medical History Relation Name Comments [...] 81 01/24/2024 1:43 PM EST Temperature 36.6 C (97.9 F) 06/01/2022 9:52 AM EDT Respiratory Rate 16 05/25/2022 1:53 PM EDT Oxygen Saturation 95% 01/24/2024 1:43 PM EST Inhaled Oxygen Concentration - - Weight 114 kg (251 lb) 01/24/2024 1:43 PM EST Height 177.8 cm (5' 10 ) 01/24/2024 1:43 PM EST Body Mass Index 36.01 01/24/2024 1:43 PM EST Plan of Treatment Health Maintenance Due Date [...] patient's age to complete this topic Insurance [facility] Advance Directives * Full Code (Latest Code Status on File) Date Activated Date Inactivated Comments 06/20/2022 10:27 AM Decision thor oughly discussed with: Patient * Full Code Date Activated Date Inactivated Comments 12/11/2020 11:12 AM 06/20/2022 10:27 AM Care Teams Manager Recruiting Relationship Specialty Start Date End Date Pcp, No PCP - General General Medicine 08/18/23
[2024-10-09 06:28] LABS: MANUAL DIFF FLAG NO
[2024-10-09 07:43] LABS: Hematocrit 42.0 % (42.0-52.0); Hemoglobin 14.2 g/dl (14.0-18.0); Imm Gran Abs Auto 0.02 X10*3/uL (0.00-0.03); Imm Gran Pct Auto 0.3 % (0.0-0.4); Lymphocytes Absolute Auto 1.7 X10*3/uL (1.2-4.9); Mean Corpuscular HGB Conc 33.8 g/dl (31.0-36.0); Mean Corpuscular Hemoglobin 30.5 pg (27.0-33.0); Mean Corpuscular Volume 90.1 fL (80.0-98.0); NRBC Abs Auto 0.000 X10*3/uL (0.0-0.012); NRBC Pct Auto 0.0 /100WBC (0.0-0.2); Platelet Count 224 X10*3/uL (160-400); Red Blood Count 4.66 X10*6/uL (4.60-5.80); White Blood Count 6.0 X10*3/uL (4.8-10.8)
[2024-10-09 07:56] LABS: Hemoglobin A1C 159.2710 umol/L; Total Hemoglobin (HGBA1C) 3701.2511 umol/L
[2024-10-09 08:29] LABS: Alanine Aminotransferase 9 U/L (0-40); Albumin Level 4.7 g/dL (3.5-5.0); Alkaline Phosphatase 110 U/L (39-117); Anion Gap 13 (12-20); Aspartate Amino Transferase 33 U/L (5-37); Blood Urea Nitrogen 21 mg/dL (9-16); Calcium 9.4 mg/dL (8.4-10.2); Carbon Dioxide 28 mmol/L (22-29); Chloride 100 mmol/L (96-108); Cholesterol 120 mg/dL (<200); Estimated Glomerular Filt Rate > 60; HDL Cholesterol 44 mg/dL (>40); Potassium 4.8 mmol/L (3.3-5.1); Sodium 136 mmol/L (135-145); Total Protein 6.9 g/dL (6.5-8.0); Triglycerides 93 mg/dL (<150)
== END 2024-10-09 06:06 | disposition home or self-care (01) ==
LOC: HO.LAB 06:05
PROVIDERS: PCP Physician Assistant; Visit Provider Physician Assistant
DX: Z01.89 Encounter for other specified special examinations (principal); I48.0 Paroxysmal atrial fibrillation; E11.29 Type 2 diabetes mellitus with other diabetic kidney complication; E78.2 Mixed hyperlipidemia; R80.9 Proteinuria, unspecified; I10 Essential (primary) hypertension; Z12.5 Encounter for screening for malignant neoplasm of prostate
CPT/HCPCS: 36415; 80053; 80061; 83036; 84153; 84443; 85025

== ENCOUNTER 2024-10-10 08:23 | Outpatient (AMB) | payer OTHER, SELFPAY ==
--- NOTE | 2024-10-10 08:27 | MHC.PC.OV ---
Vital Signs 10/10/24 08:30 Height 5 ft 10 in Weight 251 lb 4 oz BMI 36.0 BP 110/76 Blood Pressure Location Rt brachial Position Sitting Respiration 14 Pulse 85 Pulse Source Pulse Oximeter Pulse Oximetry (%) 97 Oxygen Delivery Method Room Air Intake Visit Reasons: med check Intake Note: Medication follow up Arts Administrator Required: No Allergies No Known Allergies Allergy (Verified 10/10/24 08:27) Medication List - Last Reconciled 10/10/24 by Malissa Lugo PA-C allopurinol 200 mg (2 x 100 mg) PO BEDTIME 90 days apixaban (Eliquis) 5 mg PO BID atorvastatin 80 mg PO DAILY carbidopa-levodopa 25-100 mg ER tabs PO cholecalciferol (vitamin D3) 50 mcg PO DAILY diltiazem HCl ER (DILT-XR) 180 mg PO DAILY empagliflozin (Jardiance) 10 mg PO QAM ferrous sulfate 325 mg PO DAILY flecainide 100 mg PO Q12H folic acid 1 mg PO DAILY gabapentin 600 mg (2 x 300 mg) PO TID 90 days lisinopril 10 mg PO DAILY methocarbamol 500 mg PO TID 90 days multivitamin 1 tab PO DAILY thiamine mononitrate (vit B1) 100 mg PO DAILY Tobacco use date assessed: 04/18/24 Dental Screening Dental Screen Date: 10/10/24 Did you have a dental visit in the last 12 months?: Yes Did you have a dental problem in the last 6 months where you did not have access to dental care?: No Was dental information given to patient?: Patient has dentist HPI med check HPI Details Pt is a 59 y/o male who presents today for a follow up. He has a history of hypertension, hyperlipidemia, AFib, chronic anticoagulation, controlled type 2 diabetes, prior CVA with residual right-sided weakness , recent diagnosis of parkinsonism and gout. Endo: dx around 2013. His is A1c is 6.1. He is doing well with the Jardiance. No UTIs or yeast infections. Microalbuminuria noted. Last LDL was WNL. He remains on atorvastatin 80 mg. He is on an NICK inhibitor. CV: Blood pressure today in the office is 110/70. He is currently on diltiazem, flecainide, lisinopril and Eliquis. Follows with Dr. Mancera. Has an appointment in a couple of months and we will be discussing the Watchman Musculoskeletal: He is on gabapentin 600 mg 3 times a day and methocarbamol 3 times a day. He has been on this regimen since his stroke in feels well with this. He is on allopurinol for gout prevention. Neuro: He has a right arm, hand and right leg and vocal tremor. He followed by neurology in [place] and he ended up meeting with a board of neurologists. He states that they believe the parkinsonism is related to his stroke however, it is recently progressing. He plans to follow up with them Vasc: follows with [facility] [place] vasc and states everything is stable Colonoscopy: Was referred [facility] Medical History (Updated 12/13/23 @ 11:26 by Malissa Lugo PA-C) CVA (cerebral vascular accident) Right sided weakness Paroxysmal A-fib Hypertension Hyperlipidemia Surgical History Hx of appendectomy H/O: vasectomy Family History Mother Valvular heart disease Father Congestive heart failure Heart failure Gout Brother Alcoholic Aspergers' syndrome Lung cancer Histiocytosis Wilsons disease Other Substance use Social History (Updated 04/18/24 @ 13:12 by Theresa Alonzo CMA) Housing: House Alcohol intake: current Comment: sometimes Patient Tobacco Use Status: Current someday Tobacco user Tobacco use type: Cigar Years Smoked: Once a week if that e-Cigarette/Vaping Use: Never Used Second Hand Smoke Exposure: No service: No Current occupational status: employed 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 Current occupational exposures/hazards: No Cognitive needs: No Hearing needs: No Vision needs: No Questionnaire Thrive Questionnaire Date Thrive assessed: 02/21/24 I am a: Patient What is your living situation today?: I have a steady place to live Within the past 12 months, did the food you bought not last and you didn't have the money to get more?: Never true Within the past 12 months, did you worry whether your food would run out before you got money to buy more?: Never true Do you have trouble paying for medicines?: No Do you have trouble getting transportation to medical appointments?: No Do you have trouble paying your heating and electricity bill?: No Do you have trouble taking care of your child, family member or friend?: No Do you have trouble with day-to-day activities such as bathing, preparing meals, shopping, managing finances, etc.?: No Are you currently unemployed and looking for a job?: No Are you interested in more education?: No Please select the resources that you would like help with: None Currently or been in a relationship where the following occur: No concerns reported THRIVE Score: 0 Physical exam (Primary Care) Vital Signs: Last Vital Signs Pulse 85 10/10/24 08:30 Resp 14 10/10/24 08:30 BP 110/76 10/10/24 08:30 Pulse Ox 97 10/10/24 08:30 Oxygen Delivery Method Room Air 10/10/24 08:30 BMI result Body Mass Index 36.0 Tobacco/Smoking Status: Tobacco use Status Tobacco use date assessed 04/18/24 10/10/24 08:29 Patient Tobacco Use Status Current someday Tobacco 10/10/24 08:29 Tobacco use type Cigar 10/10/24 08:29 e-Cigarette/Vaping Use Never Used 10/10/24 08:29 Thrive Assessment: Date of Thrive Assessment Date Thrive assessed 02/21/24 10/10/24 08:29 Currently or been in a relationship where the following occur: No concerns reported Const Orientation/consciousness: patient oriented x3 HENMT Ears: hearing grossly normal bilaterally Neck Thyroid: Thyroid normal Lymphatic: no lymphadenopathy noted Resp Auscultation: clear to auscultation bilaterally Cardio Rate: regular rate Rhythm: regular rhythm Heart sounds: S1 normal heart sound present and S2 normal heart sound present GI Inspection: Yes normal to inspection Palpation (GI): Soft to palpation and Other GI palpation findings present (nontender, no cva tenderness) Auscultation: normoactive bowel sounds Rectal Exam - Male: Yes deferred Skin General skin exam: no rashes or lesions noted Neuro General: patient oriented x3, gait normal and no focal motor deficits Results Reviewed Results Reviewed: Laboratory Tests 06/24/24 06/24/24 10/09/24 06:17 06:29 06:27 WBC 6.0 RBC 4.66 Hgb 14.2 Hct 42.0 Plt Count 224 Sodium 137 136 Potassium 4.8 Chloride 100 Carbon Dioxide 28 Anion Gap 13 BUN 21 H Creatinine 1.21 Estimated GFR > 60 Random Glucose 135 H Estimat Average Glucose 128 Hemoglobin A1c % 6.1 H Calcium 9.4 Total Bilirubin 0.5 AST 33 ALT 9 Alkaline Phosphatase 110 Total Protein 6.9 Albumin 4.7 Triglycerides 93 Cholesterol 120 LDL Cholesterol, Calc 58 HDL Cholesterol 44 PSA Screen 1.33 TSH 0.97 Urine Creatinine 97.03 Urine Microalbumin 123.0 Microalb/Creat Ratio 126.7 H Coding Level of Care Code Est Pt Level 4 (91378) Complex EM visit Add On G2211 Diagnoses Primary hypertension I10 Hypertension type: primary hypertension Paroxysmal A-fib I48.0 Controlled type 2 diabetes mellitus with kidney complication, without long-term current use of insulin E11.29 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 No symptoms (3) Controlled type 2 diabetes mellitus with kidney complication, without long-term current use of insulin: Code(s): E11.29 - Type 2 diabetes mellitus with other diabetic kidney complication Category: Medical Plan: Currently very well-controlled. Continue Jardiance (4) Parkinsonism: Code(s): G20.C - Parkinsonism, unspecified Category: Medical Qualifiers: Parkinsonism type: secondary Parkinsonism Secondary Parkinsonism type: vascular Qualified Code(s): G21.4 - Vascular parkinsonism Plan: [facility] with [facility]. Encouraged physical activity/exercise as tolerated Orders: Orders Complete Blood Count Auto Diff 3 Months E11.29 - Type 2 diabetes mellitus with other diabetic kidney complication, G21.4 - Vascular parkinsonism, I10 - Essential (primary) hypertension, I48.0 - Paroxysmal atrial fibrillation, R80.9 - Proteinuria, unspecified Basic Metabolic Panel Today E11.29 - Type 2 diabetes mellitus with other diabetic kidney complication, G21.4 - Vascular parkinsonism, I10 - Essential (primary) hypertension, I48.0 - Paroxysmal atrial fibrillation, R80.9 - Proteinuria, unspecified Liver Panel Today E11.29 - Type 2 diabetes mellitus with other diabetic kidney complication, G21.4 - Vascular parkinsonism, I10 - Essential (primary) hypertension, I48.0 - Paroxysmal atrial fibrillation, R80.9 - Proteinuria, unspecified Hemoglobin A1c Today E11.29 - Type 2 diabetes mellitus with other diabetic kidney complication, G21.4 - Vascular parkinsonism, I10 - Essential (primary) hypertension, I48.0 - Paroxysmal atrial fibrillation, R73.01 - Impaired fasting glucose, R80.9 - Proteinuria, unspecified Medications: Discontinued dulaglutide (Trulicity) Discontinued Reason: Doctor's Order 0.75 mg (0.5 mL) subcut QWEEK 2 mL 3RF
[2024-10-10 08:30] VITALS: BP 110/76; PULSE 85; RESP 14; O2SAT 97; BMI 36.0
--- OUTSIDE RECORDS SUMMARY | 2024-10-10 08:48 | XMS_ITS | Clinical Summary ---
Author Organization [facility] Address 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
--- OUTSIDE RECORDS SUMMARY | 2024-10-10 08:48 | XMS_ITS | Clinical Summary ---
Author Organization [facility] Address [address] [place] [address] Care Team Providers Care Land Classifier Name Role Phone Pcp, No Primary Care [...] (12/11/2020): Added automatically from request for surgery [id number] Family History Medical History Relation Name Comments [...] patient's age to complete this topic Insurance [facility] Advance Directives * Full Code (Latest Code Status on File) Date Activated Date Inactivated Comments 06/20/2022 10:27 AM Decision thor oughly discussed with: Patient * Full Code Date Activated Date Inactivated Comments 12/11/2020 11:12 AM 06/20/2022 10:27 AM Care Teams Land Classifier Relationship Specialty Start Date End Date Pcp, No PCP - General General Medicine 08/18/23
--- OUTSIDE RECORDS SUMMARY | 2024-10-10 08:48 | XMS_ITS | Encounter Summary ---
Author Organization [facility] Address [address] [place] [address] Care Team Providers Care Quiller Machine Fixer Name Role Phone Gely Joseph MD Primary Care Provider Pcp, No Primary Care Provider Unavailabl e Encounter Details Date Type Department Care Team (Late st Contact Info) Description 05/24/2022 Telephone [facility] [address] [place] [address] Pcp, No Social History Tobacco [...] answer ???Yes?? to any symptom, contact the donor services team leaderhospice clinical manager staff will be wearing a mask to help protect you and we ask that you and your family or visitors wear a mask to protect them. Are you in agreement? * If patient refusal escalate to Piler documented in this encounter Plan of Treatment Not on file documented as of this encounter Visit Diagnoses Not on filedocumented in this encounter Care Teams Quiller Machine Fixer Relationship Specialty Start Date End Date Gely Joseph MD PCP - General Internal Medicine 12/11/20 08/17/23 Pcp, No PCP - General General Medicine 08/18/23 documented as of this encounter
== END 2024-10-10 09:16 | disposition home or self-care (01) ==
LOC: HO.HMCFM 08:23
PROVIDERS: PCP Physician Assistant; Visit Provider Physician Assistant
DX: I10 Essential (primary) hypertension (principal); I48.0 Paroxysmal atrial fibrillation; E11.29 Type 2 diabetes mellitus with other diabetic kidney complication; G21.4 Vascular parkinsonism